=== PATIENT | female | born 1960 | race Caucasian/White ===

== ENCOUNTER 2018-04-22 16:08 | Inpatient (IN) ==
[2018-04-22] MEDS ORDERED: Isovue-370 500 ML INFUS..BTL IV ONE (16:16)
[2018-04-22] MEDS ORDERED: 0.9 % Sodium Chloride 500 ML IVC ONE (16:16)
--- NOTE | 2018-04-22 16:19 | Emergency Department Note ---
Disposition Clinical Impression: Acute kidney injury, Hypokalemia, Hyponatremia Cerebrovascular accident Qualifiers: CVA mechanism: occlusion Precerebral and cerebral artery: unspecified precerebral artery Qualified Code(s): I63.20 - Cerebral infarction due to unspecified occlusion or stenosis of unspecified precerebral arteries Hypotension Qualifiers: Hypotension type: other hypotension type Qualified Code(s): I95.89 - Other hypotension Disposition: Admitted As Inpatient Condition: Fair Referrals: NONE,PCP [Primary Care Provider] - Forms: ED Satisfaction Letter Time of Disposition: 18:08 Neuro HPI - General Chief Complaint: ED Neuro Symptoms/Deficit Stated Complaint: neuro, hypotensive Time Seen by Provider: 04/22/18 16:14 Nursing Notes Reviewed: Yes Vital Signs Reviewed: Yes - History of Present Illness HPI Narrative: 57yo female presents from [facility] where she is undergoing post- stroke physical therapy. Staff noted this afternoon that her left sided facial droop was worse then normal. Last known well per staff report to EMS is 7pm yesterday evening (21hrs prior to arrival). Patient has been increasing Per patient, she awoke this morning at an unknown time with worsening slurring of speech and worsening difficulty chewing. EMS was called and patient was transported to this facility. 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 At baseline, patient has left sided facial droop, left upper and lower extremity weakness (cannot lift from bed at baseline). PMH: Hypertension, 5 of myalgia, thyroid disease, history of migraines, history of prior CVA. ROS: Positive: As above. Patient notes a mild headache on EMS arrival to [facility] which has now resolved. Negative: Falls, trauma, fever, chills, chest pains, palpitations, dyspnea, diaphoresis, fever, chills - Related Data Home Medications: Home Medications Medication Instructions Recorded Confirmed Acetaminophen [Non-Aspirin] 650 mg PO Q4-6H PRN 04/22/18 04/22/18 Albuterol Neb [Proventil Neb] 2.5 mg IH Q4H PRN 04/22/18 04/22/18 Amlodipine Besylate 10 mg PO DAILY 04/22/18 04/22/18 Azelastine 0.1% Nasal [place] 1 spr NS DAILY 04/22/18 04/22/18 [Astelin] Cyclobenzaprine HCl 5 mg PO BID 04/22/18 04/22/18 Dextromethorphan HBr/Quinidine 1 cap PO BID 04/22/18 04/22/18 [Nuedexta 20-10 mg Capsule] FLUoxetine HCl [Fluoxetine HCl] 40 mg PO DAILY 04/22/18 04/22/18 Gabapentin [Neurontin] 800 mg PO TID 04/22/18 04/22/18 Leflunomide [Arava] 20 mg PO DAILY 04/22/18 04/22/18 Levothyroxine [Synthroid] 50 mcg PO QAM 04/22/18 04/22/18 Lisinopril [Zestril] 10 mg PO DAILY 04/22/18 04/22/18 Loratadine [Allergy Relief] 10 mg PO DAILY 04/22/18 04/22/18 Melatonin [Melatin] 6 mg PO HS 04/22/18 04/22/18 Meloxicam [Mobic] 15 mg PO DAILY 04/22/18 04/22/18 Morphine Sulfate [Nadia] 1 cap PO BID 04/22/18 04/22/18 Ondansetron HCl [Zofran] 4 mg PO Q4H PRN 04/22/18 04/22/18 Topiramate [Topamax] 50 mg PO BID 04/22/18 04/22/18 traZODone [TraZODone] 50 mg PO HS 04/22/18 04/22/18 Allergies/Adverse Reactions: Allergies Allergy/AdvReac Type Severity Reaction Status Date / Time Sulfa (Sulfonamide AdvReac See Verified 05/12/17 07:56 Antibiotics) Comments All systems ED: reviewed and negative except as stated. Review of Systems: As Per HPI Past Medical History - Past Medical History Medical history: Reports: CVA, fibromyalgia, hypertension, migraine, RA, thyroid disease, other Surgical history: Reports: hysterectomy (2001) Psychiatric history: Reports: bipolar DOG TRAINER history: Reports: no DOG TRAINER history - Social History Smoking Status: Never smoker Smokeless Tobacco Status: No Alcohol use: Reports: none Drug use: Reports: none Physical Exam Vital Signs Reviewed General: Patient is alert, oriented, and in no acute distress. Head: atraumatic, normocephalic Eye: normal appearance, PERRL, EOMI, no scleral icterus, no conjunctival injec tion ENT: mucous membranes moist, normal external ear exam Neck: normal inspection, trachea midline, full ROM Chest: normal inspection, symmetric chest rise Respiratory: Good respiratory effort. Bilateral breath sounds are clear without wheezing, crackles, or rhonchi. Cardiovascular: Regular rate and rhythm. No clicks, rubs, gallops, or murmors. Normal heart sounds. Abdomen: Bowel sounds present normoactive x-4 quadrants. Abdomen is soft, nondistended, and nontender. No guarding or rebound. No organomegaly noted. Musculoskeletal: Spontaneously moving right upper and lower extremity is. Skin: warm, dry, intact. Neuro: GCS 15. Alert and oriented to person. She states her location is [facility], no [place]. Sensation light touch intact in right UE and LE. Mild decrease in sensation in left UE and LE. Left extremities fall to bed. Negative right finger to nose. Left sided facial droop with mild slurring of speech. Psych: Patient's affect is appropriate for situation. Course Course Narrative: Patient rise with some documentation from [facility]. There is no updated medication list. Documentation provided that appears to be copies from [facility] documentation from May 2017. Discharge outpatient prescriptions show no anticoagulant or antiplatelet medication. Their doctor mentation notes she has no history of aspirin or blood thinners prior to arrival to that facility in May. Their documentation shows suspicion of hypertension contributing to her previous hemorrhagic CVA. On arrival, patient's blood pressure systolic in the 70s. Will provide 500 mL IV fluid bolus. Code stroke called. 16:30 Discussed the patient with [facility] neurologist. Formal CT head review is pending. Discussed with [facility] neurologist the patient's history and presentation as well as timeline of events. They prefer to forego telemetry robot at this time. If there are any positive findings, the request call back to discuss possible transfer. If negative, they recommend admission to this facility for continued evaluation. 16:37 Discussed the patient with [facility]. No acute findings. EKG dated 04/22/2018 at 16:18 interpreted as sinus rhythm with rate of 86. QTC 451. Normal axis. Nonspecific ST-T changes. Compared to previous EKG dated 05/12/2017 showing no acute ischemic changes comparison. 17:40 Discussed the patient with on-call [facility] neurology, Dr. Barksdale. He agrees to see the patient on the inpatient side as consultation with admission to hospitalist. After discussing the patient's history and presentation, strong suspicion for hypoperfusion causing her neurologic symptoms. We will continue to fluid resuscitate and reevaluate. Patient has elevated creatinine substantially higher than baseline. Concern for acute kidney injury. This could be secondary to dehydration which would expl ain her concomitant and hypotension. Patient is hyponatremic; suspect hypovolemic hyponatremia. She also has hypokalemia with potassium 2.9. After discussing with the hospitalist, will provide 20 mEq potassium by mouth with cautious replenishment given her kidney function. Patient is admitted to hospitalist with neurology consult. Pending: Urinalysis, serum magnesium levels. Head CT 04/22/18 16:15 IMPRESSION: No acute intracranial abnormality. Sequela of remote right basal ganglia hemorrhage. Findings were discussed with Jose A Perdue at 4:38 pm on 04/22/2018. D/ / 04/22/2018 16:42:42 Ron Ramirez MD / enma Interpreting Provider: Ron Ramirez MD Head CTA 04/22/18 16:16 IMPRESSION: No acute abnormality or flow-limiting stenosis in the major arteries of the head and neck. Asymmetric small caliber of the left common and internal carotid arteries relative to the right, likely developmental. Status post right frontal craniotomy with subjacent encephalomalacia in the right frontotemporal lobes and the right basal ganglia likely related to old infarctions. D/ / Brian Bailey MD / Brian Bailey MD Interpreting Provider: Brian Bailey MD Neck CTA 04/22/18 16:16 IMPRESSION: No acute abnormality or flow-limiting stenosis in the major arteries of the head and neck. Asymmetric small caliber of the left common and internal carotid arteries relative to the right, likely developmental. Status post right frontal craniotomy with subjacent encephalomalacia in the right frontotemporal lobes and the right basal ganglia likely related to old infarctions. D/ / Brian Bailey MD / Brian Bailey MD Interpreting Provider: Brian Bailey MD Vital Signs Temperature 98.4 F 04/22/18 16:10 Pulse Rate 89 04/22/18 16:10 Respiratory Rate 16 04/22/18 16:10 Blood Pressure 79/29 04/22/18 16:10 O2 Sat by Pulse Oximetry 100 04/22/18 16:10 Temperature 98.4 F 04/22/18 16:10 Pulse Rate 93 04/22/18 17:42 Respiratory Rate 18 04/22/18 17:42 Blood Pressure 84/57 04/22/18 17:42 O2 Sat by Pulse Oximetry 97 04/22/18 17:42 Oxygen Delivery Oxygen Delivery Nasal Cannula Neuro Symptoms/Deficit - Lab Data Result diagrams: 04/22/18 16:15 04/22/18 16:15 Lab Results 04/22/18 04/22/18 04/22/18 Range/Units 16:15 16:15 16:15 WBC 12.3 H (4.3-11.1) K/mcL RBC 5.15 H (3.82-4.97) M/mcL Hgb 13.8 (11.5-15.4) g/dL Hct 43.4 (35.3-44.9) % MCV 84.3 (83.0-100.0) fL MCH 26.8 L (28.0-33.3) pg MCHC 31.8 (31.6-35.5) g/dL RDW 16.1 H (11.5-14.5) % Plt Count 231 (140-400) K/mcL MPV 9.4 (9.4-12.4) fL PT 12.3 H (9.4-12.1) Seconds INR 1.1 APTT 33.3 (26.0-36.0) Seconds Sodium 134 L (136-145) mEq/L Potassium 2.9 L (3.5-5.1) mEq/L Chloride 102 (98-107) mEq/L Carbon Dioxide 20 L (23-29) mEq/L BUN 40 H (6-20) mg/dL Creatinine 4.14 H (0.60-1.20) mg/dL Est GFR ( Amer) 14 L (> 60) Est GFR (Non-Af Amer) 11 L (> 60) BUN/Creatinine Ratio 10 (6-26) Glucose 117 H (70-105) mg/dL Calculated Osmolality 289 (280-300) Calcium 8.2 L (8.6-10.3) mg/dL Troponin I < 0.03 (< 0.04) ng/mL NIH Stroke Scale - Level of Consciousness LOC: Alert - LOC Questions LOC Questions: Answers both correctly - LOC Commands LOC Commands: Performs both correctly - Best Gaze Best Gaze: Normal - Visual Visual: No visual loss - Facial Palsy Facial Palsy: Partial, total, or near-total paralysis of lower face - Motor Arms Motor Arm-Left: No movement (baseline per patient) Motor Arm-Right: No drift for 10 seconds - Motor Legs Motor Leg-Left: No movement (baseline per patient) Motor Leg-Right: No drift for 5 seconds - Limb Ataxia Limb Ataxia: Present in ONE limb (baseline per patient) - Sensory Sensory: Mild to moderate loss, "not as sharp" (baseline per patient) - Best Language Best Language: No aphasia - Dysarthria Dysarthria: Mild, slurs some words (worse than baseline slurring of speech) - Extinction and Inattention Extinction and Inattention: Normal - NIHSS Total Score NIHSS Total Score: 13 TPA Checklist - Eligibilty for IV tPA 1. LKW equal to or less than 4.5 hours be before treatment: No - LKW: 3-4.5 hrs Add. Warnings/Precautions Patient/family understanding: The patient/family members have been counseled and understood the risk, benefit, and alternatives of treatment.
--- NOTE | 2018-04-22 16:20 | Emergency Department Note ---
Disposition Clinical Impression: Cerebrovascular accident Qualifiers: CVA mechanism: occlusion Precerebral and cerebral artery: unspecified precerebral artery Qualified Code(s): I63.20 - Cerebral infarction due to unspecified occlusion or stenosis of unspecified precerebral arteries Disposition: Still a Patient Condition: Fair General Adult HPI - General Chief complaint: ED Neuro Symptoms/Deficit Stated complaint: neuro, hypotensive Time Seen by Provider: 04/22/18 16:14 Nursing Notes Reviewed: Yes Vital Signs Reviewed: Yes - History of Present Illness HPI Narrative: ED attending Attestation note Patient was seen with the emergency medicine resident, Jose A Perdue: I have independently evaluated the patient and have had [id number] contact with the patient. I have reviewed the history and physical, evaluation and management plan in addition to the pertinent laboratory, ancillary and imaging studies along with consultation recommendations if applicable. I agree with their evaluation, management and disposition.. Briefly: 57-year-old female history of at least 2 prior strokes one requiring intubation and transfer to the [facility] earlier this year by EMS from the local custodial facility for worsening of her pre-existing left facial droop and weakness. Last known well per half-way staff is 7 PM yesterday. Patient says she woke up at an unknown time this morning and was feeling the symptoms. Continue protocol changes symptoms up to 24 hours or eligible for stroke alert. A stroke alert has been called. Imaging studies blood work interventions are being made. Patient is hypotensive at a systolic of 75. Patient will get 500 mL normal saline bolus and recheck. Providing one hour critical care service this patient. Disposition pending. - Related Data Home Medications Medication Instructions Recorded Confirmed FLUoxetine HCl [PROzac] 20 mg PO DAILY 05/12/17 05/12/17 Montelukast [Singulair] 10 mg PO DAILY 05/12/17 05/12/17 Naproxen 375 mg PO BID 05/12/17 05/12/17 Topiramate [Topamax] 50 mg PO BID 05/12/17 05/12/17 Allergies Allergy/AdvReac Type Severity Reaction Status Date / Time Sulfa (Sulfonamide AdvReac See Verified 05/12/17 07:56 Antibiotics) Comments Past Medical History - Past Medical History Medical history: Reports: CVA, fibromyalgia, hypertension, migraine, RA, thyroid disease, other Surgical history: Reports: hysterectomy (2001) Psychiatric history: Reports: bipolar CAD DESIGNER history: Reports: no CAD DESIGNER history - Social History Smoking Status: Never smoker Smokeless Tobacco Status: No Alcohol use: Reports: none Drug use: Reports: none
[2018-04-22 16:30] LABS: Hematocrit 43.4 % (35.3-44.9); Hemoglobin 13.8 g/dL (11.5-15.4); Mean Corpuscular HGB Conc 31.8 g/dL (31.6-35.5); Mean Corpuscular Hemoglobin 26.8 pg (28.0-33.3); Mean Corpuscular Volume 84.3 fL (83.0-100.0); Mean Platelet Volume 9.4 fL (9.4-12.4); Platelet Count 231 K/mcL (140-400); Red Blood Count 5.15 M/mcL (3.82-4.97); Red Cell Distribution Width 16.1 % (11.5-14.5)
[2018-04-22 16:39] LABS: INR 1.1; Prothrombin Time 12.3 Seconds (9.4-12.1)
[2018-04-22 16:41] LABS: Activated Partial Thrombo Time 33.3 Seconds (26.0-36.0)
[2018-04-22 16:52] LABS: BUN/Creatinine Ratio 10 (6-26); Blood Urea Nitrogen 40 mg/dL (6-20); Calcium 8.2 mg/dL (8.6-10.3); Carbon Dioxide 20 mEq/L (23-29); Chloride 102 mEq/L (98-107); Glucose 117 mg/dL (70-105); Osmolality,Calculated 289 (280-300); Potassium 2.9 mEq/L (3.5-5.1); Sodium 134 mEq/L (136-145); Troponin I < 0.03 ng/mL (< 0.04); eGFR For Non-African Americans 11 (> 60)
[2018-04-22] MEDS ORDERED: 0.9 % Sodium Chloride 1,000 ML IVC ONE ×2 (17:43→20:27)
[2018-04-22 18:28] LABS: Magnesium 1.2 mg/dL (1.6-2.6)
[2018-04-22 18:46] LABS: Bilirubin,Urine Small (Negative); Blood,Urine Small (Negative); Clarity,Urine Cloudy (Clear); Color,Urine Dark Yellow (Yellow); Glucose,Urine (UA) Normal (Normal); Ketones,Urine Negative (Negative); Leukocyte Esterase,Urine Small (Negative); Nitrite,Urine Negative (Negative); Protein,Urine 30 mg/dL (Neg-Trace); Urobilinogen,Urine Normal (Normal)
[2018-04-22 18:48] LABS: Bacteria,Urine None Seen per hpf (None-Few); Squamous Epithelial Cell,Urine Many per lpf (None-Few); WBC,Urine 15-30 per hpf (0-3)
--- NOTE | 2018-04-22 19:41 | Internal Med History&Physical ---
Date of Encounter: 04/23/18 Time of Encounter: 19:40 Internal Medicine - H&P: HPI Chief complaint: Left Sided Facial Droop History of present illness: Ms. Calderón is a 57 year old female with a past medical history of fibromyalgia, hypertension, migraines and CVA who presents from [facility] where she is undergoing post-stroke physical therapy. Staff noted this afternoon that her left sided facial droop was worse then normal. Last known well per staff r eport to EMS is 7pm yesterday evening (21hrs prior to arrival). Per patient, she awoke this morning at an unknown time with worsening slurring of speech and worsening difficulty chewing. EMS was called and patient was transported to this facility. Patient has a Hx hemorrhagic CVA approximately one year ago in Apr 2017 and CVA in 2014 each with left sided symptoms. At baseline, patient has left sided facial droop, left upper and lower extremity weakness (cannot lift from bed at baseline). Of note, patient has been reporting a two-week history of nausea vomiting and diarrhea with decreased PO intake. I contacted her nursing facility and spoke with her nurse who stated that she has been jiménez ving GI symptoms for the past few days with daily nausea vomiting and diarrhea with decreased by mouth intake. On arrival patient appeared to be dry, was found to be hypotensive with a systolic blood pressure in the 80s. Labs were notable for acute renal failure with a ceatinine of greater than 4. Initial imaging of the head including head and neck CT and CTA were unremarkable. She was evaluated by Dr. Barksdale with neurology in the ED. Past Med Surg Social Fam HX - Past Medical History Medical history: CVA, fibromyalgia, hypertension, migraine, RA, thyroid disease, other Additional medical history: RA / Graves Disease Psychiatric history: bipolar - Past Surgical History Surgical History: hysterectomy (2001) - Social History Smoking Status: Never smoker Smokeless Tobacco Status: No Alcohol use: none Drug use: none Internal Medicine - H&P: Meds Acetaminophen [Non-Aspirin] 650 mg PO Q4-6H PRN 04/22/18 [History] Albuterol Neb [Proventil Neb] 2.5 mg IH Q4H PRN 04/22/18 [History] Amlodipine Besylate 10 mg PO DAILY 04/22/18 [History] Azelastine 0.1% Nasal [place] [Astelin] 1 spr NS DAILY 04/22/18 [History] Cyclobenzaprine HCl 5 mg PO BID 04/22/18 [History] Dextromethorphan HBr/Quinidine [Nuedexta 20-10 mg Capsule] 1 cap PO BID 04/22/18 [History] FLUoxetine HCl [Fluoxetine HCl] 40 mg PO DAILY 04/22/18 [History] Gabapentin [Neurontin] 800 mg PO TID 04/22/18 [History] Leflunomide [Arava] 20 mg PO DAILY 04/22/18 [History] Levothyroxine [Synthroid] 50 mcg PO QAM 04/22/18 [History] Lisinopril [Zestril] 10 mg PO DAILY 04/22/18 [History] Loratadine [Allergy Relief] 10 mg PO DAILY 04/22/18 [History] Melatonin [Melatin] 6 mg PO HS 04/22/18 [History] Meloxicam [Mobic] 15 mg PO DAILY 04/22/18 [History] Morphine Sulfate [Nadia] 1 cap PO BID 04/22/18 [History] Ondansetron HCl [Zofran] 4 mg PO Q4H PRN 04/22/18 [History] Topiramate [Topamax] 50 mg PO BID 04/22/18 [History] traZODone [TraZODone] 50 mg PO HS 04/22/18 [History] Allergy/AdvReac Type Severity Reaction Status Date / Time Sulfa (Sulfonamide AdvReac See Verified 05/12/17 07:56 Antibiotics) Comments All Systems PM: A 10-system review of systems was performed and is negative for pertinent findings except as documented above in the HPI. - Constitutional Constitutional: no chills, no fever(s), no night sweats - EENT Eyes: no change in vision, no discharge, no pain, no photophobia Ears: no ear discharge, no ear pain, no tinnitus Nose, mouth and throat: no dysphagia, no nasal discharge, no neck pain, no sore throat - Cardiovascular Cardiovascular ROS IM: no chest pain, no diaphoresis, no dyspnea, no lightheadedness, no palpitations, no syncope - Respiratory Respiratory: no cough, no dyspnea, no wheezing, no excessive phlegm production - Gastrointestinal Gastrointestinal: no abdominal pain, no diarrhea, no hematemesis, no hematochezia, no melena, no nausea, no vomiting - Genitourinary Genitourinary: no change in urinary stream, no dysuria, no flank pain, no hematuria - Musculoskeletal Musculoskeletal ROS IM: no numbness, no tingling - Integumentary Integumentary IM: no rash, no unusual bruising - Neurological Neurological ROS: no confusion, no convulsions, no focal weakness, no numbness, no tingling, no tremor(s) - Hematologic/Lymphatic Hematologic/Lymphatic: no easy bruising - Constitutional Vitals: Temp Pulse Resp BP Pulse Ox 98.4 F 88 16 96/55 100 04/22/18 16:10 04/22/18 18:23 04/22/18 18:23 04/22/18 18:23 04/22/18 18:23 Exam: General: Alert and oriented Skin:Normal color, no rash, no lesions. HEENT:EOM, pupils equal, round and reactive. Dry mucous membranes Cardiovascular:Normal S1 & S2, no rubs, murmurs or gallops. No JVD. Pulse regular. Lungs:Normal breath sounds, no wheezes or crackles. Abdomen:Soft, non-tender, no rigidity. Extremities:No deformity, no edema or tenderness, no joint swelling or clubbing. Neurological: Significant left-sided upper and lower extremity weakness with in creased spasticity. Mild left-sided facial droop noted. Patient alert oriented 3. Muscle strength 4 out of 5 in the upper and lower extremities. Flaccid in the left upper and lower extremities. Cranial nerves 2 through 12 intact with inability to shrug her left shoulder. Pulses:Carotid and radial pulses normal +2. Rest of the physical exam is non contributory Internal Med - H&P Results - Labs CBC & Chem 7: 04/23/18 03:44 04/23/18 03:44 Labs: Short CBC 04/22/18 Range/Units 16:15 WBC 12.3 H (4.3-11.1) K/mcL Hgb 13.8 (11.5-15.4) g/dL Hct 43.4 (35.3-44.9) % Plt Count 231 (140-400) K/mcL BMP 04/22/18 16:15 Sodium 134 L Potassium 2.9 L Chloride 102 Carbon Dioxide 20 L BUN 40 H Creatinine 4.14 H Glucose 117 H Calcium 8.2 L Cardiac Enzymes 04/22/18 Range/Units 16:15 Troponin I < 0.03 (< 0.04) ng/mL Urine 04/22/18 Range/Units 18:22 Urine Color Dark Yellow (Yellow) Urine Clarity Cloudy A (Clear) Urine pH 5.0 (5.0-8.0) pH Units Ur Specific Sebastian 1.020 (1.010-1.025) Urine Protein 30 H (Neg-Trace) mg/dL Urine Glucose (UA) Normal (Normal) mg/dL - Impressions ITS Impressions Head CT 04/22/18 16:15 IMPRESSION: No acute intracranial abnormality. Sequela of remote right basal ganglia hemorrhage. Findings were discussed with Jose A Perdue at 4:38 pm on 04/22/2018. D/ / 04/22/2018 16:42:42 Ron Ramirez MD / enma Interpreting Provider: Ron Ramirez MD Head CTA 04/22/18 16:16 IMPRESSION: No acute abnormality or flow-limiting stenosis in the major arteries of the head and neck. Asymmetric small caliber of the left common and internal carotid arteries relative to the right, likely developmental. Status post right frontal craniotomy with subjacent encephalomalacia in the right frontotemporal lobes and the right basal ganglia likely related to old infarctions. D/ / Brian Bailey MD / Brian Bailey MD Interpreting Provider: Brian Bailey MD Neck CTA 04/22/18 16:16 IMPRESSION: No acute abnormality or flow-limiting stenosis in the major arteries of the head and neck. Asymmetric small caliber of the left common and internal carotid arteries relative to the right, likely developmental. Status post right frontal craniotomy with subjacent encephalomalacia in the right frontotemporal lobes and the right basal ganglia likely related to old infarctions. D/ / Brian Bailey MD / Brian Bailey MD Interpreting Provider: Brian Bailey MD - Assessment and plan (1) Facial droop Current Visit: Yes Status: Acute Assessment and plan: Patient brought in from rehab center due to concern for worsening left-sided facial droop and slurred speech. Patient has mild left-sided facial droop at baseline. I did not appreciate any slurred speech upon my assessment. CT scan of the head including CTA of the head and neck were performed which did not reveal any acute changes. Patient was evaluated in the ED by Dr. Barksdale with neurology whom I spoke with after his evaluation of the patient and feels her current presentation is unlikely due to to recurrent stroke but likely secondary to her ERNESTINA and medications including gabapentin and narcotics. Patient did not appear to receive a loading dose of aspirin in the ED. He recommends MRI in the morning and further stroke workup. We will give loading dose of Aspirin Continue with neuro checks Echocardiogram and bilateral carotids MRI in the morning Treat underlying hypotension, ERNESTINA and electrolyte derangements (2) Acute kidney injury Current Visit: Yes Status: Acute Assessment and plan: Acute kidney injury with a creatinine of greater than 4. Likely prerenal in the setting of reported several day history of nausea vomiting and diarrhea with decreased by mouth intake. We will continue aggressive fluid rehydration. We will repeat BMP at 10 PM and in the morning. We will hold off nephrology consult for now and see if patient's creatinine improves on its own with hydration. (3) Hypokalemia Current Visit: Yes Status: Acute Assessment and plan: Hypokalemia and a potassium of 2.9 likely secondary to GI losses. No EKG changes noted. Patient passed bedside swallow. We will replete with by mouth potassium and monitor. (4) Hypotension Current Visit: Yes Status: Acute Assessment and plan: Hypotension in the setting of reported history of nausea vomiting and diarrhea for the past 2 days with decreased PO and take. Patient's blood pressure still remains soft with a systolic in the 90s. She is received 1-1/2 L fluid boluses. We will give an additional bolus for now and monitor closely. Qualifiers: Hypotension type: hypotension due to hypovolemia Qualified Code(s): I95.89 - Other hypotension; E86.1 - Hypovolemia (5) Hypomagnesemia Current Visit: Yes Status: Acute Assessment and plan: Hypomagnesemia likely secondary to GI losses. We will replete. (6) DVT prophylaxis Current Visit: Yes Status: Acute Assessment and plan: Subcutaneous heparin - Time Spent With Patient Total time spent is greater than 50% in coordination of care (as documented) at patient's floor/unit and/or counseling patient:
[2018-04-22] MEDS ORDERED: Naloxone 0.4 MG/ML INJ IVP PRN (19:54)
[2018-04-22] MEDS ORDERED: Albuterol 2.5 MG/3 ML NEBULIZER IH PRN (19:57)
[2018-04-22] MEDS ORDERED: Aspirin 325 MG TABLET PO STA (20:59)
[2018-04-22] MEDS: Potassium Citrate 10 MEQ TABLET.ER PO SCH (21:07)
[2018-04-23 00:46] LABS: Calcium 7.2 mg/dL (8.6-10.3); Potassium 3.3 mEq/L (3.5-5.1)
[2018-04-23] MEDS ORDERED: 0.9 % Sodium Chloride 500 ML IVC ONE (00:52)
[2018-04-23] MEDS: *HR* Heparin 5,000 UNIT/ML VIAL SQ SCH ×3 (01:14→22:58)
[2018-04-23] MEDS: 0.9 % Sodium Chloride 1,000 ML IVC SCH ×2 (01:58→12:29)
[2018-04-23 04:11] LABS: Basophils % 0.3 %; Eosinophils # 0.8 K/mcL (0.0-0.6); Eosinophils % 8.6 %; Hematocrit 41.2 % (35.3-44.9); Immature Granulocytes % 0.4 % (0-4); Lymphocytes # 1.4 K/mcL (0.6-4.6); Lymphocytes % 14.8 %; Mean Corpuscular HGB Conc 31.6 g/dL (31.6-35.5); Mean Corpuscular Hemoglobin 26.6 pg (28.0-33.3); Mean Corpuscular Volume 84.4 fL (83.0-100.0); Mean Platelet Volume 9.1 fL (9.4-12.4); Monocytes # 0.7 K/mcL (0.0-1.3); Monocytes % 6.7 %; Neutrophils # 6.8 K/mcL (1.6-8.9); Platelet Count 200 K/mcL (140-400); Red Blood Count 4.88 M/mcL (3.82-4.97); Red Cell Distribution Width 16.2 % (11.5-14.5); Segmented Neutrophils % 69.2 %
[2018-04-23 04:18] LABS: INR 1.1; Prothrombin Time 12.4 Seconds (9.4-12.1)
[2018-04-23 04:21] LABS: Activated Partial Thrombo Time 31.4 Seconds (26.0-36.0)
[2018-04-23 04:33] LABS: Albumin 3.5 g/dL (3.5-5.7); Albumin/Globulin Ratio 1.3 (1.1-2.2); Bilirubin,Total 0.4 mg/dL (0.3-1.0); Calcium 7.4 mg/dL (8.6-10.3); Globulin 2.8 g/dL (2.4-3.5); Magnesium 1.4 mg/dL (1.6-2.6); Phosphorous 4.7 mg/dL (2.7-4.5); Total Protein 6.3 g/dL (6.4-8.9)
--- NOTE | 2018-04-23 07:40 | Internal Med Progress Note ---
Hospitalist Progress Note - Encounter Date of Encounter: 04/23/18 Time of Encounter: 11:00 - Subjective Interval History: Patient is a 57-year-old female with past medical history significant for prior CVAs in 2015 in 2017 who presented with left-sided facial weakness and dysarthria. Workup in progress; MRI, carotids and echocardiogram pending In addition patient also with acute renal failure - Exam Vitals: Temp Pulse Resp BP Pulse Ox 98.1 F 89 17 83/47 72 04/23/18 06:54 04/23/18 06:54 04/23/18 03:44 04/23/18 06:54 04/23/18 06:54 Exam: Gen.: Nonacute distress, alert and oriented 3 ENT: Mucosal membranes moist Respiratory: Lungs are clear to auscultation bilaterally without any wheezing rhonchi or rales Cardiovascular: Normal S1 and S2 regular rate rhythm no murmurs rubs or gallops Abdomen: Soft, nontender and nondistended with positive bowel sounds Extremities: No lower extremity edema Skin: Normal color - Assessment and Plan (1) Facial droop Current Visit: Yes Status: Acute Assessment and Plan: Patient brought in from rehab center due to concern for worsening left-sided facial droop and slurred speech. Patient has mild left-sided facial droop at baseline. CT scan of the head including CTA of the head and neck were performed which did not reveal any acute changes. Patient was evaluated in the ER by Dr. Barksdale with neurology and does not suspect recurrent cva but likely secondary to her acute renal failure and medications including gabapentin and narcotics. Continue with neuro checks Echocardiogram, bilateral carotids and MRI pending Neurology following and appreciate any additional recommendations (2) Hypotension Current Visit: Yes Status: Acute Assessment and Plan: Hypotension in the setting of reported history of nausea vomiting and diarrhea for the past 2 days with decreased PO and take. Patient has received a total of 3 L of IV fluids and is currently on maintenance other 125 mL/hr Will continue to monitor (3) Hypokalemia Current Visit: Yes Status: Acute Assessment and Plan: Potassium of 2.9 on admission; suspect secondary to GI loss due to two-week history of diarrhea. Potassium this morning 3.3 status post a total of 100 mEq of KCl Will continue replacements and monitoring (4) Hypomagnesemia Current Visit: Yes Status: Acute Assessment and Plan: Magnesium 1.2 on admission and is 1.4 this morning status post 1 g of magnesium sulfate Hypomagnesemia likely secondary to GI losses. Will continue replacements and monitoring (5) Acute renal failure (ARF) Current Visit: Yes Status: Acute Assessment and Plan: Creatinine 4.14 on admission with no prior history of kidney disease Suspect secondary to dehydration above Creatinine this morning 3.04 Continue IV fluids Will obtain complete retroperitoneal ultrasound Will consult nephrology and appreciate recommendations (6) HTN (hypertension), benign Current Visit: Yes Status: Acute Assessment and Plan: Patient with hypotension therefore will hold home dose of lisinopril and amlodipine (7) Hypothyroid Current Visit: Yes Status: Acute Assessment and Plan: Continue home dose of levothyroxine (8) Mood disorder Current Visit: Yes Status: Acute Assessment and Plan: Continue home medications (9) DVT prophylaxis Current Visit: Yes Status: Acute Assessment and Plan: Subcutaneous heparin - Time Spent with Patient Total time spent is greater than 50% in coordination of care (as documented) at patient's floor/unit and/or counseling patient: Internal Medicine: Result - Labs CBC & Chem 7: 04/23/18 03:44 04/23/18 03:44 Labs: Short CBC 04/22/18 04/23/18 Range/Units 16:15 03:44 WBC 12.3 H 9.8 (4.3-11.1) K/mcL Hgb 13.8 13.0 (11.5-15.4) g/dL Hct 43.4 41.2 (35.3-44.9) % Plt Count 231 200 (140-400) K/mcL Neutrophils # 6.8 (1.6-8.9) K/mcL BMP 04/22/18 04/23/18 04/23/18 16:15 00:16 03:44 Sodium 134 L 133 L 137 Potassium 2.9 L 3.3 L 3.0 L Chloride 102 108 H 109 H Carbon Dioxide 20 L 13 L 17 L BUN 40 H 37 H 37 H Creatinine 4.14 H 3.36 H 3.04 H Glucose 117 H 114 H 107 H Calcium 8.2 L 7.2 L 7.4 L Cardiac Enzymes 04/22/18 Range/Units 16:15 Troponin I < 0.03 (< 0.04) ng/mL Liver Function 04/23/18 Range/Units 03:44 Total Bilirubin 0.4 (0.3-1.0) mg/dL AST 11 L (13-39) Units/L ALT 21 (7-52) Units/L Alkaline Phosphatase 85 (34-104) Units/L Albumin 3.5 (3.5-5.7) g/dL Urine 04/22/18 Range/Units 18:22 Urine Color Dark Yellow (Yellow) Urine Clarity Cloudy A (Clear) Urine pH 5.0 (5.0-8.0) pH Units Ur Specific [place] 1.020 (1.010-1.025) Urine Protein 30 H (Neg-Trace) mg/dL Urine Glucose (UA) Normal (Normal) mg/dL - ABG Interpretation ABG results: PT/INR, D-dimer PT 12.4 Seconds (9.4-12.1) H 04/23/18 03:44 - Impressions Impressions Head CT 04/22/18 16:15 IMPRESSION: No acute intracranial abnormality. Sequela of remote right basal ganglia hemorrhage. Findings were discussed with Jose A Perdue at 4:38 pm on 04/22/2018. D/ / 04/22/2018 16:42:42 Ron Ramirez MD / enma Interpreting Provider: Ron Ramirez MD Head CTA 04/22/18 16:16 IMPRESSION: No acute abnormality or flow-limiting stenosis in the major arteries of the head and neck. Asymmetric small caliber of the left common and internal carotid arteries relative to the right, likely developmental. Status post right frontal craniotomy with subjacent encephalomalacia in the right frontotemporal lobes and the right basal ganglia likely related to old infarctions. D/ / Brian Bailey MD / Brian Bailey MD Interpreting Provider: Brian Bailey MD Neck CTA 04/22/18 16:16 IMPRESSION: No acute abnormality or flow-limiting stenosis in the major arteries of the head and neck. Asymmetric small caliber of the left common and internal carotid arteries relative to the right, likely developmental. Status post right frontal craniotomy with subjacent encephalomalacia in the right frontotemporal lobes and the right basal ganglia likely related to old infarctions. D/ / Brian Bailey MD / Brian Bailey MD Interpreting Provider: Brian Bailey MD Consult Discharge Plan - Plan Referrals: NONE,PCP [Primary Care Provider] - (2) Hypotension Qualifiers: Hypotension type: hypotension due to hypovolemia Qualified Code(s): I95.89 - Other hypotension; E86.1 - Hypovolemia
[2018-04-23] MEDS ORDERED: Perflutren Lipid Microsphere 1.3 ML in 0.9 % Sodium Chloride 8.7 ML IVP ONE (10:18)
[2018-04-23] MEDS ORDERED: Perflutren Lipid Microsphere 2 ML VIAL ONE (10:27)
--- NOTE | 2018-04-23 11:18 | Neurology - Consult Note ---
Date of Encounter: 04/22/18 Time of Encounter: 06:15 Assessment and Plan (1) Cerebral hypoperfusion Current Visit: Yes Status: Acute This patient who has an history of bleed in head status post any on tummy and hemorrhagic infarct with residual left hemiparesis admitted with these multiple symptoms including worsening of the weakness of the left side. CT scan did not lift but certainly in a patient like this to be difficult to confirm that she did not have a new stroke without MRI. Certainly clinical symptoms are in the same distribution and seems to be worse considering her overall symptoms with decreased fluid intake and being having nausea vomiting it could be related to the hypoperfusion of the brain making the old symptoms worse on the damage brain with significant encephalomalacia noted. With her atrial fibrillation and multiple other medical condition certainly she is risk for the stroke at the moment I suggest that we should continue on the current medication continue to monitor her blood pressure keep it in stable range with IV fluids . Continue her on antiplatelet therapy with aspirin only as there is no evidence of any bleeding on a CT scan. If MRI of the brain shows any evidence of ischemia 3 may consider looking into other treatment options. She would be getting a stroke workup as well but at the same time I would stro ngly recommend to check for any underlying metabolic and infectious etiologies that may be causing her symptoms to be worse. Other treatment is as per primary team case discussed with the admitting ph ysician (2) Hemiparesis affecting left side as late effect of stroke Current Visit: Yes Status: Acute (3) Facial droop Current Visit: Yes Status: Acute (4) Status post craniotomy Current Visit: Yes Status: Acute History of Present Illness HPI: Ms. Calderón is a 57 year old female with past medical history of fibromyalgia, hypertension, migraines and Hemmorhagic CVA , with residual left face droop and hemiparesis, resides in [facility], noted this afternoon that her left sided facial droop was worse then normal. Last known well per staff report to EMS is 7pm yesterday evening (21hrs prior to arrival). Per patient, she has noticed slurring of speech and worsening difficulty chewing when she woke up. EMS was called and patient was transported to ER, she had hemorrhagic CVA approximately one year ago in Apr 2017 and CVA in 2014 each with left sided symptoms. patient also complaining of two-week history of nausea vomiting and diarrhea with decreased PO intake. she has been having GI symptoms for the past few days with daily nausea vomiting and diarrhea with decreased by mouth intake. in ED patient was found to be hypotensive with a systolic blood pressure in the 80s. Labs were notable for acute renal failure with a ceatinine of greater than 4. Initial imaging of the head including head and neck CT and CTA were unremarkable fr any acute findings, She is admitted with the further workup for the stroke and for her GI symptoms Past Med Surg Social Fam HX - Past Medical History Medical history: CVA, fibromyalgia, hypertension, migraine, RA, thyroid disease, other Additional medical history: RA / Graves Disease Psychiatric history: bipolar - Past Surgical History Surgical History: hysterectomy (2001) Additional surgical history: "bladder surgery" and "bowel surgery" - Social History Smoking Status: Never smoker Smokeless Tobacco Status: No Alcohol use: none Drug use: none Medications and Allergies Acetaminophen [Non-Aspirin] 650 mg PO Q4-6H PRN 04/22/18 [History] Albuterol Neb [Proventil Neb] 2.5 mg IH Q4H PRN 04/22/18 [History] Amlodipine Besylate 10 mg PO DAILY 04/22/18 [History] Azelastine 0.1% Nasal [place] [Astelin] 1 spr NS DAILY 04/22/18 [History] Cyclobenzaprine HCl 5 mg PO BID 04/22/18 [History] Dextromethorphan HBr/Quinidine [Nuedexta 20-10 mg Capsule] 1 cap PO BID 04/22/18 [History] FLUoxetine HCl [Fluoxetine HCl] 40 mg PO DAILY 04/22/18 [History] Gabapentin [Neurontin] 800 mg PO TID 04/22/18 [History] Leflunomide [Arava] 20 mg PO DAILY 04/22/18 [History] Levothyroxine [Synthroid] 50 mcg PO QAM 04/22/18 [History] Lisinopril [Zestril] 10 mg PO DAILY 04/22/18 [History] Loratadine [Allergy Relief] 10 mg PO DAILY 04/22/18 [History] Melatonin [Melatin] 6 mg PO HS 04/22/18 [History] Meloxicam [Mobic] 15 mg PO DAILY 04/22/18 [History] Morphine Sulfate [Nadia] 1 cap PO BID 04/22/18 [History] Ondansetron HCl [Zofran] 4 mg PO Q4H PRN 04/22/18 [History] Topiramate [Topamax] 50 mg PO BID 04/22/18 [History] traZODone [TraZODone] 50 mg PO HS 04/22/18 [History] Allergy/AdvReac Type Severity Reaction Status Date / Time Sulfa (Sulfonamide AdvReac See Verified 05/12/17 07:56 Antibiotics) Comments All Systems: The remainder of the systems were reviewed and are negative Physical Examination - Vital Signs Vital Signs: Initial Vital Signs Temp Pulse Resp BP Pulse Ox 98.4 F 89 16 79/29 100 04/22/18 16:10 04/22/18 16:10 04/22/18 16:10 04/22/18 16:10 04/22/18 16:10 - Exam Exam: GENERAL: Comfortable in no acute distress HEENT: Normal LUNGS: CTA HEART: RRR, S1 S2 Audible, no murmur EXTREMITIES: 1 +Pedal edema. DETAILED NEUROLOGICAL EXAMINATION: MENTAL STATUS: Oriented to person, place, date and situation. Memory: knows the President, Aware of recent events Recent Memory Intact, Attention span is normal Cranial Nerve Examination: CN - II: Visual Acuity, Field of Vision Normal, Fundus examination: No disk edema, Pupils- size shape reaction to light and accommodation: All normal. CN III, IV, : External ocular movements were intact, Pupils were reactive, Nodrooping of the eyelids CN V: Sensation over the face to light touch and pinprick all normal. Corneal reflexes not tested, jaw jerk normal. CN VII: LEFT Facial asymmetry, flattening of LEFT nasolabial folds, no difficulty in closing the eyes, no loss of forehead wrinkles, no difficulty in eye-closure, frowning raising eyebrows. CNVIII: No significant hearing loss CN IX, X: Uvula centralized not deviated, Gag reflex: Not tested CN X1: Sternocleidomastoid, trapezius, normal or evidence of any weakness. CN X11: No Dysarthria, no wasting or fibrilation f tongue muscles, no deviation, tongue muscle strength normal. Motor examination: No hypertrophy, tone was normal, power grade 0-5 Upper limbs Proximal- LEFT UPPER EXT PARESIS, NO MOVEMENT, . Distal- weakness in distal muscles On formal testing LEFT IS 0/0, RIGHT IS 4/4 all over Lower limbs On formal testing LEFT IS SPASTIC PARESIS, RIGHT IS 4/4r Coordination: [id number] slow in rihgt , not able to do on left, Sensory system: Superficial sensations- Touch decrease on eft Pain- Pinprick, Temperature all decrease Deep sensation normal, Joint position sense normal. Cortical sensation, Tactile discrimination, localization and extinction derease on left Deep tendon reflexes. hyper acive on right with evidence of Babinski on right No sign of meningeal irritation Gait Examination: Deferred - Constitutional General appearance: comfortable Results - Laboratory Findings CBC and BMP: 04/23/18 03:44 04/23/18 03:44 Abnormal lab findings: Abnormal lab results MCH 26.6 pg (28.0-33.3) L 04/23/18 03:44 RDW 16.2 % (11.5-14.5) H 04/23/18 03:44 MPV 9.1 fL (9.4-12.4) L 04/23/18 03:44 Eosinophils # 0.8 K/mcL (0.0-0.6) H 04/23/18 03:44 PT 12.4 Seconds (9.4-12.1) H 04/23/18 03:44 Potassium 3.0 mEq/L (3.5-5.1) L 04/23/18 03:44 Chloride 109 mEq/L (98-107) H 04/23/18 03:44 Carbon Dioxide 17 mEq/L (23-29) L 04/23/18 03:44 BUN 37 mg/dL (6-20) H 04/23/18 03:44 Creatinine 3.04 mg/dL (0.60-1.20) H 04/23/18 03:44 Est GFR ( Amer) 19 (> 60) L 04/23/18 03:44 Est GFR (Non-Af Amer) 16 (> 60) L 04/23/18 03:44 Glucose 107 mg/dL (70-105) H 04/23/18 03:44 Calcium 7.4 mg/dL (8.6-10.3) L 04/23/18 03:44 Phosphorus 4.7 mg/dL (2.7-4.5) H 04/23/18 03:44 Magnesium 1.4 mg/dL (1.6-2.6) L 04/23/18 03:44 AST 11 Units/L (13-39) L 04/23/18 03:44 Serum Total Protein 6.3 g/dL (6.4-8.9) L 04/23/18 03:44 Urine Clarity Cloudy (Clear) A 04/22/18 18:22 Urine Protein 30 mg/dL (Neg-Trace) H 04/22/18 18:22 Urine Blood Small (Negative) H 04/22/18 18:22 Urine Bilirubin Small (Negative) H 04/22/18 18:22 Ur Leukocyte Esterase Small (Negative) H 04/22/18 18:22 Urine Microscopic RBC 5-15 per hpf (0-3) H 04/22/18 18:22 Urine Microscopic WBC 15-30 per hpf (0-3) H 04/22/18 18:22 Ur Squamous Epith Cells Many per lpf (None-Few) H 04/22/18 18:22 Ur Culture Indicated? NO. (NO) A 04/22/18 18:22 - Diagnostic Findings Additional findings: CT scan of the head shows Encephalomalacia is present in the right frontal lobe and right temporal lobe at the site of the previous intraparenchymal hemorrhage. Postoperative changes are present in the right frontal lobe likely from evacuation of the hematoma. CT angiopathy the neck did not show any carotid or vertebral stenosis Consult Discharge Plan - Plan Referrals: NONE,PCP [Primary Care Provider] -
[2018-04-23] MEDS: Aspirin 81 MG TAB.CHEW PO SCH (12:32)
--- NOTE | 2018-04-23 13:31 | Nephrology Consult Note ---
Date of Encounter: 04/23/18 Time of Encounter: 12:00 Assessment and Plan (1) Acute kidney injury Current Visit: Yes Status: Acute Elevated SCr in the setting of N/V/D and decerased po intake whie on NSAIDs and ACEi Agree with holding all nephrotoxins agent and avoiding any more Agree with aggresive fluid repletion, appears to be effective as SCr already trending down No acute indication for [employer] at this time Will check some urine studies Will check CPK and uric acid levels (2) Hypokalemia Current Visit: Yes Status: Acute Replete magnesium first and then potassium. appears to have received already a total of 140MeQ? Per medication orders (3) Hypomagnesemia Current Visit: Yes Status: Acute Magnesium replaced with 1grams over an hour twice, with resultant increase up to 11.4, might be too fast Will replete again but this time 2grams over 4 hrs History of Present Illness - Reason for Consult Consult date: 04/23/18 Acute Kidney Injury, hypokalemia Requesting physician: Calderon Rice - History of Present Illness 57 y o female with PMH of CVA last a year ago in rehab, fibromyalgia, bipolar d/o and HTN admitted after being sent in from [facility] with facial droop. Pt was noted with elevated Scr at 4.14, GFR 11 with known baseline at 1.14 as of 04/2017. Also part of the history of 2 weeks of N/V/D along with decreased po intake. Noted on medication list are meloxicam and lisinopril. Pt seen and examined still with diarrhea but was able to tolerate po intake today so far. Past Med Surg Social Fam HX - Past Medical History Medical history: CVA, fibromyalgia, hypertension, migraine, RA, thyroid disease, other Additional medical history: RA / Graves Disease Psychiatric history: bipolar - Past Surgical History Surgical History: hysterectomy (2001) Additional surgical history: "bladder surgery" and "bowel surgery" - Social History Smoking Status: Never smoker Smokeless Tobacco Status: No Alcohol use: none Drug use: none Medications and Allergies Acetaminophen [Non-Aspirin] 650 mg PO Q4-6H PRN 04/22/18 [History] Albuterol Neb [Proventil Neb] 2.5 mg IH Q4H PRN 04/22/18 [History] Amlodipine Besylate 10 mg PO DAILY 04/22/18 [History] Azelastine 0.1% Nasal [place] [Astelin] 1 spr NS DAILY 04/22/18 [History] Cyclobenzaprine HCl 5 mg PO BID 04/22/18 [History] Dextromethorphan HBr/Quinidine [Nuedexta 20-10 mg Capsule] 1 cap PO BID 04/22/18 [History] FLUoxetine HCl [Fluoxetine HCl] 40 mg PO DAILY 04/22/18 [History] Gabapentin [Neurontin] 800 mg PO TID 04/22/18 [History] Leflunomide [Arava] 20 mg PO DAILY 04/22/18 [History] Levothyroxine [Synthroid] 50 mcg PO QAM 04/22/18 [History] Lisinopril [Zestril] 10 mg PO DAILY 04/22/18 [History] Loratadine [Allergy Relief] 10 mg PO DAILY 04/22/18 [History] Melatonin [Melatin] 6 mg PO HS 04/22/18 [History] Meloxicam [Mobic] 15 mg PO DAILY 04/22/18 [History] Morphine Sulfate [Nadia] 1 cap PO BID 04/22/18 [History] Ondansetron HCl [Zofran] 4 mg PO Q4H PRN 04/22/18 [History] Topiramate [Topamax] 50 mg PO BID 04/22/18 [History] traZODone [TraZODone] 50 mg PO HS 04/22/18 [History] Allergy/AdvReac Type Severity Reaction Status Date / Time Sulfa (Sulfonamide AdvReac See Verified 05/12/17 07:56 Antibiotics) Comments Review of Systems All Systems review (narrative): The rest of the systems are negative Constitutional: fatigue (admits) Gastrointestinal: diarrhea (admits), vomiting (admits) Exam - Vital Signs Vital signs: Initial Vital Signs Temp Pulse Resp BP Pulse Ox 98.4 F 89 16 79/29 100 04/22/18 16:10 04/22/18 16:10 04/22/18 16:10 04/22/18 16:10 04/22/18 16:10 Vital Signs - Last 8 Hours Temp Pulse BP Pulse Ox 04/23/18 13:16 97.5 F L 96 115/72 04/23/18 06:54 98.1 F 89 83/47 72 Intake and Output 04/22/18 04/23/18 04/23/18 23:59 07:59 15:59 Intake Total 2602 / 2602 500 / 500 1120 / 1120 Output Total 0 / 0 Balance 2602 / 2602 500 / 500 1120 / 1120 Intake: IV Fluids 2602 / 2602 500 / 500 1000 / 1000 0.9 % Sodium Chloride 1,000 ML 1000 / 1000 1000 / 1000 @ 125 mls/hr IVC .Q8H MALIK Rx#: [id number] 0.9 % Sodium Chloride 500 ML @ 500 / 500 500 / 500 999 mls/hr IVC .Q31M ONE Rx#: [id number] Magnesium Sulfate 1 GM In 0.9 % 102 / 102 Sodium Chloride 100 ML @ 100 mls/hr IVPB ONCE ONE Rx#: [id number] Oral 120 / 120 Output: Urine 0 / 0 Other: Meal Breakfast Percent of Meal Consumed 25% Weight 91.671 kg 91.5 kg Blood Glucose* 77 Patient Weight 04/23/18 23:59 Weight 91.5 kg - General Appearance General appearance: chronically ill, fatigue EENT: ATNC, mucous membranes dry Neck: no JVD, supple Respiratory: clear Cardiology: no edema, normal S1, normal S2 Gastrointestinal: no tenderness, no guarding, distended Integumentary: warm and dry Neurologic: no focal deficit Musculoskeletal: no deformities Psychiatric: mood/affect appropriate Results - Lab Results 04/23/18 03:44 04/23/18 03:44 Most recent lab results Calcium 7.4 mg/dL (8.6-10.3) L 04/23/18 03:44 Phosphorus 4.7 mg/dL (2.7-4.5) H 04/23/18 03:44 Magnesium 1.4 mg/dL (1.6-2.6) L 04/23/18 03:44 Consult Discharge Plan - Plan Referrals: NONE,PCP [Primary Care Provider] -
[2018-04-23 15:04] LABS: Uric Acid 10.3 mg/dL (2.3-7.6)
--- NOTE | 2018-04-23 15:45 | Neurology Progress Note ---
Date of Encounter: 04/23/18 Time of Encounter: 15:43 Assessment and Plan (1) Cerebral hypoperfusion Current Visit: Yes Status: Acute (2) Hemiparesis affecting left side as late effect of stroke Current Visit: Yes Status: Acute Continued to have the symptoms on the left side we will get an MRI to confirm that indeed is a new infarct or not in the meantime continue on an aspirin floyd nue to treat underlying other metabolic and infectious etiologies will follow the patient with you (3) Facial droop Current Visit: Yes Status: Acute (4) Status post craniotomy Current Visit: Yes Status: Acute Subjective Interval history: Overall patient is a stable no new or symptoms awaiting MRI of the brain still having nausea vomiting and decreased fluid intake getting IV fluids following up with nephrology she was found to be on lot of medication that perhaps contributing to her renal dysfunction like high doses of gabapentin and methadone for pain Objective - Constitutional Vitals: Temp Pulse Resp BP Pulse Ox 97.5 F L 101 17 118/71 72 04/23/18 13:16 04/23/18 15:13 04/23/18 03:44 04/23/18 15:13 04/23/18 06:54 - Neurological Exam Sensorimotor examination: Present: intact (No significant change in the neurological status continued to have this left hemiparesis) Results - Laboratory Findings CBC and BMP: 04/23/18 03:44 04/23/18 03:44 Abnormal lab findings: Abnormal lab results MCH 26.6 pg (28.0-33.3) L 04/23/18 03:44 RDW 16.2 % (11.5-14.5) H 04/23/18 03:44 MPV 9.1 fL (9.4-12.4) L 04/23/18 03:44 Eosinophils # 0.8 K/mcL (0.0-0.6) H 04/23/18 03:44 PT 12.4 Seconds (9.4-12.1) H 04/23/18 03:44 Potassium 3.0 mEq/L (3.5-5.1) L 04/23/18 03:44 Chloride 109 mEq/L (98-107) H 04/23/18 03:44 Carbon Dioxide 17 mEq/L (23-29) L 04/23/18 03:44 BUN 37 mg/dL (6-20) H 04/23/18 03:44 Creatinine 3.04 mg/dL (0.60-1.20) H 04/23/18 03:44 Est GFR ( Amer) 19 (> 60) L 04/23/18 03:44 Est GFR (Non-Af Amer) 16 (> 60) L 04/23/18 03:44 Glucose 107 mg/dL (70-105) H 04/23/18 03:44 Uric Acid 10.3 mg/dL (2.3-7.6) H 04/23/18 14:13 Calcium 7.4 mg/dL (8.6-10.3) L 04/23/18 03:44 Phosphorus 4.7 mg/dL (2.7-4.5) H 04/23/18 03:44 Magnesium 1.4 mg/dL (1.6-2.6) L 04/23/18 03:44 AST 11 Units/L (13-39) L 04/23/18 03:44 Serum Total Protein 6.3 g/dL (6.4-8.9) L 04/23/18 03:44 Urine Clarity Cloudy (Clear) A 04/22/18 18:22 Urine Protein 30 mg/dL (Neg-Trace) H 04/22/18 18:22 Urine Blood Small (Negative) H 04/22/18 18:22 Urine Bilirubin Small (Negative) H 04/22/18 18:22 Ur Leukocyte Esterase Small (Negative) H 04/22/18 18:22 Urine Microscopic RBC 5-15 per hpf (0-3) H 04/22/18 18:22 Urine Microscopic WBC 15-30 per hpf (0-3) H 04/22/18 18:22 Ur Squamous Epith Cells Many per lpf (None-Few) H 04/22/18 18:22 Ur Culture Indicated? NO. (NO) A 04/22/18 18:22 Consult Discharge Plan - Plan Referrals: NONE,PCP [Primary Care Provider] -
[2018-04-23] MEDS: Potassium Citrate 10 MEQ TABLET.ER PO SCH (23:01)
[2018-04-23] MEDS: Azelastine 0.1% Nasal Spray 30 ML BOTTLE NS SCH (23:01)
[2018-04-23 23:29] LABS: Albumin 3.7 g/dL (3.5-5.7); Albumin/Globulin Ratio 1.3 (1.1-2.2); Calcium 8.5 mg/dL (8.6-10.3); Globulin 2.8 g/dL (2.4-3.5); Magnesium 1.7 mg/dL (1.6-2.6); Potassium 3.7 mEq/L (3.5-5.1); Total Protein 6.5 g/dL (6.4-8.9)
[2018-04-23 23:30] LABS: Bilirubin,Total 0.4 mg/dL (0.3-1.0); Phosphorous 2.1 mg/dL (2.7-4.5)
[2018-04-24] MEDS: Potassium Citrate 10 MEQ TABLET.ER PO SCH ×5 (00:44→20:01)
[2018-04-24] MEDS: *HR* Heparin 5,000 UNIT/ML VIAL SQ SCH ×5 (00:44→23:48)
[2018-04-24] MEDS: 0.9 % Sodium Chloride 1,000 ML IVC SCH ×3 (00:45→19:55)
[2018-04-24 05:00] LABS: Basophils % 0.3 %; Eosinophils # 0.6 K/mcL (0.0-0.6); Eosinophils % 7.7 %; Hemoglobin 12.9 g/dL (11.5-15.4); Immature Granulocytes % 0.3 % (0-4); Lymphocytes # 0.9 K/mcL (0.6-4.6); Lymphocytes % 11.1 %; Mean Corpuscular HGB Conc 32.3 g/dL (31.6-35.5); Mean Corpuscular Hemoglobin 26.5 pg (28.0-33.3); Mean Corpuscular Volume 82.3 fL (83.0-100.0); Monocytes # 0.5 K/mcL (0.0-1.3); Monocytes % 6.7 %; Neutrophils # 5.6 K/mcL (1.6-8.9); Platelet Count 218 K/mcL (140-400); Red Blood Count 4.86 M/mcL (3.82-4.97); Segmented Neutrophils % 73.9 %
[2018-04-24 05:18] LABS: BUN/Creatinine Ratio 15 (6-26); Blood Urea Nitrogen 16 mg/dL (6-20); Calcium 8.5 mg/dL (8.6-10.3); Carbon Dioxide 19 mEq/L (23-29); Chloride 112 mEq/L (98-107); Glucose 135 mg/dL (70-105); Osmolality,Calculated 291 (280-300); Potassium 3.5 mEq/L (3.5-5.1); Sodium 139 mEq/L (136-145); eGFR For Non-African Americans 53 (> 60)
[2018-04-24 07:12] LABS: Adenovirus F 40/41 PCR Not detected (Not detect); Astrovirus PCR Not detected (Not detect); C.difficile Toxin A/B by PCR Not detected (Not detect); Campylobacter by PCR Not detected (Not detect); Cryptosporidium by PCR Not detected (Not detect); Cyclospora cayetanensis PCR Not detected (Not detect); E. coli O157 by PCR Not detected (Not detect); Entamoeba histolytica PCR Not detected (Not detect); Enteroaggregative E.coli(EAEC) Not detected (Not detect); Enteropathogenic E.coli(EPEC) Not detected (Not detect); Enterotoxigenic E.coli (ETEC) Not detected (Not detect); Giardia lamblia PCR Not detected (Not detect); Norovirus GI/GII PCR Not detected (Not detect); Plesiomonas shigelloides PCR Not detected (Not detect); Rotavirus A PCR Not detected (Not detect); Salmonella PCR Not detected (Not detect); Sapovirus PCR Not detected (Not detect); Shig/EnteroinvasiveE coli EIEC Not detected (Not detect); Shigalike tox-prod E coli STEC Not detected (Not detect); Vibrio PCR Not detected (Not detect); Vibrio cholerae PCR Not detected (Not detect); Yersinia enterocolitica PCR Not detected (Not detect)
--- NOTE | 2018-04-24 07:42 | Event Note ---
Date of Encounter: 04/24/18 Time of Encounter: 07:40 Nephrology Chart Review I received a hand-off communication from my colleague Dr. Jorgensen: 57 y/o F with ERNESTINA. The ERNESTINA and electrolyte abnormalities have nearly completely resolved. Will sign-off at this time. Thank you for having consulted the [facility] group. Please feel free to call and / or page me with any questions. Thank you
[2018-04-24] MEDS: Aspirin 81 MG TAB.CHEW PO SCH (12:23)
--- NOTE | 2018-04-24 12:53 | Gastroenterology Consult Note ---
<Piedad Hooks - Last Filed: 04/24/18 12:49> Date of Encounter: 04/24/18 Time of Encounter: 12:15 - Assessment and plan (1) Diarrhea Current Visit: Yes Status: Acute Assessment and plan: Pt reports a month long history of diarrhea. GI panel was negative, will check fecal calpro, pancreatic elastase, and TSH. She needs colonoscopy to rule out microscopic colitis after workup for acute CVA is complete. She is being followed by neurology and MRI is scheduled for today. Qualifiers: Diarrhea type: unspecified type Qualified Code(s): R19.7 - Diarrhea, unsp ecified (2) Nausea & vomiting Current Visit: Yes Status: Acute Assessment and plan: Better at this time. Will likely need EGD if unresolved. Qualifiers: Vomiting type: unspecified Vomiting Intractability: unspecified Qualified Code(s): R11.2 - Nausea with vomiting, unspecified (3) Cerebrovascular accident Current Visit: Yes Status: Acute Assessment and plan: Pt had hemorrhagic stroke last year, presented with worsening symptoms. She is being seen by neurology and MRI is scheduled. Qualifiers: CVA mechanism: occlusion Precerebral and cerebral artery: unspecified precerebral artery Qualified Code(s): I63.20 - Cerebral infarction due to unspecified occlusion or stenosis of unspecified precerebral arteries (4) Acute renal failure (ARF) Current Visit: Yes Status: Acute Assessment and plan: Improved following hydration. - Time Spent With Patient Total time spent is greater than 50% in coordination of care (as documented) at patient's floor/unit and/or counseling patient: GI History of Present Illness - Data of Consult Patient: new to practice Consult date: 04/24/18 Requesting Physician: Calderon Rice - Consult Narrative Reason for consult: nausea/vomiting/diarrhea History of present illness: Ms. Calderón is a 57 year old female with a past medical history of fibromyalgia, hypertension, migraines and CVA who presents from [facility] where she is undergoing post-stroke physical therapy. Staff noted this afternoon that her left sided facial droop was worse then normal. Patient has a Hx hemorrhagic CVA approximately one year ago in Apr 2017 and CVA in 2014 each with left sided symptoms. At baseline, patient has left sided facial droop, left upper and lower extremity weakness (cannot lift from bed at baseline). Of note, patient has been reporting a two-week history of nausea vomiting and diarrhea with decreased PO intake. Per the nursing facility, she has been having GI symptoms for the past few days with daily nausea vomiting and diarrhea with decreased by mouth intake. On arrival patient appeared to be dehydrated and labs indicated acute renal failure. Initial imaging of the head including head and neck CT and CTA were unremarkable. She was evaluated by Dr. Barksdale with neurology in the ED. The patient has also been more confused and hallucinating, per nurse reports. She denies any nausea at this time, but states that she has nausea and abdominal pain every time she eats. She reports explosive watery diarrhea and currently has a rectal tube. She denies any hematochezia or melena. Colonoscopy/egd: pt is unsure of dates NSAIDS: ASA 81 mg Anticoagulants: sub Q heparin Past Med Surg Social Fam HX - Past Medical History Medical history: CVA, fibromyalgia, hypertension, migraine, RA, thyroid disease, other Additional medical history: RA / Graves Disease Psychiatric history: bipolar - Past Surgical History Surgical History: hysterectomy (2001) Additional surgical history: "bladder surgery" and "bowel surgery" - Social History Smoking Status: Never smoker Smokeless Tobacco Status: No Alcohol use: none Drug use: none Review of Systems: GI: as per [facility] GENERAL: denies fever, has some chills EYES: denies yellow discoloration ENT: denies pain with swallowing or difficulty swallowing CARDIO: denies chest pain, palpitations RESP: No Shortness of breath with exertion : denies change in color of urine NEURO: chronic left sided weakness HEME: Denies any bruising MS: complains of chronic pain. DERM: denies rash or itching PSYCH: history of anxiety and depression - Constitutional Vitals: Temp Pulse Resp BP Pulse Ox 98.0 F 103 15 152/84 94 04/24/18 11:00 04/24/18 11:00 04/24/18 11:00 04/24/18 11:00 04/24/18 11:00 Exam: CONSTITUTIONAL:alert, no acute distress.HEAD:normocephalic.EYES:no jaundice.NECK:no obvious swelling.HEART:regular rate and rhythm, no murmurs.LUNGS:bilateral fair air entry.ABDOMEN:non distended, soft, tender, no masses palpable, no organomegaly.RECTAL EXAM:Deferred.EXTREMITIES:no clubbing, cyanosis or edema, left sided weakness noted.SKIN:no stigmata of chronic liver disease.NEUROLOGIC:no obvious focal defect. Results - Labs CBC & Chem 7: 04/24/18 04:27 04/24/18 04:27 Labs: Last Result Calcium 8.5 mg/dL (8.6-10.3) L 04/24/18 04:27 Troponin I < 0.03 ng/mL (< 0.04) 04/22/18 16:15 Entire Visit Hgb 12.9 g/dL (11.5-15.4) 04/24/18 04:27 Hct 40.0 % (35.3-44.9) 04/24/18 04:27 PT 12.4 Seconds (9.4-12.1) H 04/23/18 03:44 Total Bilirubin 0.4 mg/dL (0.3-1.0) 04/23/18 21:36 AST 15 Units/L (13-39) 04/23/18 21:36 ALT 17 Units/L (7-52) 04/23/18 21:36 - ABG ABG results: PT/INR, D-dimer PT 12.4 Seconds (9.4-12.1) H 04/23/18 03:44 - Impressions Impressions Head CT 04/22/18 16:15 IMPRESSION: No acute intracranial abnormality. Sequela of remote right basal ganglia hemorrhage. Findings were discussed with Jose A Perdue at 4:38 pm on 04/22/2018. D/ / 04/22/2018 16:42:42 Ron Ramirez MD / enma Interpreting Provider: Ron Ramirez MD Echocardiogram 04/23/18 21:00 Impressions: LVEF 65%. Indeterminate diastolic function. Definity echo contrast was used. Normal right ventricular structure and function. Mild tricuspid regurgitation. No pulmonary hypertension. Saline contrast injection negative for presence of inter-atrial shunting. Left Ventricular Wall Motion: Rest Echo Findings All wall segments showed normal motion. Findings: Study Quality * Technically challenging due to body habitus. ECG Findings * Normal sinus rhythm. Left Ventricle * LVEF 65%. * Indeterminate diastolic function. * Definity echo contrast was used. * Normal LV chamber size, wall thickness and function. Right Ventricle * Normal right ventricular structure and function. Left Atrium * Normal left atrial size. Right Atrium * Normal right atrial size. Aortic Valve * No aortic regurgitation. * No aortic stenosis. * Aortic valve not well visualized. Mitral Valve * No mitral regurgitation. * No mitral stenosis. * Normal mitral valve structure. Tricuspid Valve * Tricuspid valve not well visualized. * Mild tricuspid regurgitation. Pulmonic Valve * Pulmonic valve is not well visualized. * No pulmonic stenosis. * No pulmonic regurgitation. Pulmonary Artery * Pulmonary artery not well visualized. Aorta * Normally sized aortic root. * Proximal descending thoracic aorta not well visualized. Pericardium * There is no pericardial effusion present. Interatrial Septum * Saline contrast injection negative for presence of inter-atrial shunting. IVC * The IVC is not well evaluated. Consult Discharge Plan - Plan Referrals: NONE,PCP [Primary Care Provider] - <Isa Sharif - Last Filed: 04/24/18 21:21> Date of Encounter: 04/24/18 Time of Encounter: 17:50 - Time Spent With Patient Total time spent is greater than 50% in coordination of care (as documented) at patient's floor/unit and/or counseling patient: GI History of Present Illness - Data of Consult Requesting Physician: Calderon Rice - Consult Narrative History of present illness: Ms. Calderón is a 57 year old female - Constitutional Vitals: Temp Pulse Resp BP Pulse Ox 97.6 F 102 16 152/96 94 04/24/18 20:06 04/24/18 20:06 04/24/18 20:06 04/24/18 20:06 04/24/18 18:55 Results - Labs CBC & Chem 7: 04/24/18 04:27 04/24/18 04:27 Labs: Last Result Calcium 8.5 mg/dL (8.6-10.3) L 04/24/18 04:27 Troponin I < 0.03 ng/mL (< 0.04) 04/22/18 16:15 Entire Visit Hgb 12.9 g/dL (11.5-15.4) 04/24/18 04:27 Hct 40.0 % (35.3-44.9) 04/24/18 04:27 PT 12.4 Seconds (9.4-12.1) H 04/23/18 03:44 Total Bilirubin 0.4 mg/dL (0.3-1.0) 04/23/18 21:36 AST 15 Units/L (13-39) 04/23/18 21:36 ALT 17 Units/L (7-52) 04/23/18 21:36 - ABG ABG results: PT/INR, D-dimer PT 12.4 Seconds (9.4-12.1) H 04/23/18 03:44 - Impressions Impressions Head CT 04/22/18 16:15 IMPRESSION: No acute intracranial abnormality. Sequela of remote right basal ganglia hemorrhage. Findings were discussed with Jose A Perdue at 4:38 pm on 04/22/2018. D/ / 04/22/2018 16:42:42 Ron Ramirez MD / enma Interpreting Provider: Ron Ramirez MD - Attending Attestation I examined this patient and my medical decision-making was reviewed with the Resident Physician. I agree with the documented findings, disposition and treatment plan as described except to the extent set forth below. Pt seen. No vomitting. O/E: AA has left side weakness. Abd Soft. A: Pt with diarrhea, NV. Rec: will check stool studies, if stool w/u negative then will consider scopes only after w/u for stroke completed
--- NOTE | 2018-04-24 14:36 | Neurology Progress Note ---
Addendum entered and electronically signed by Surjit Barksdale MD 04/27/18 15:28: Pt was seen and examined, my medical decision was reviewed with the Resident Physician, I agree with the documented findings, disposition and treatment plas as described except to the extent set forth below Surjit Barksdale MD Addendum entered and electronically signed by Moris Mackenzie DO 04/26/18 08:13: Original Note: <Moris Mackenzie - Last Filed: 04/24/18 14:48> Date of Encounter: 04/24/18 Time of Encounter: 14:32 Assessment and Plan (1) Hemiparesis affecting left side as late effect of stroke Current Visit: Yes Status: Acute still awaiting MRI. Patient does not have any return of strength in her left side. continue aspirin Subjective Principal diagnosis: CVA Interval history: no acute events overnight. Still awaiting MRI. Patient is confused this morning, saying she needs to get "tests" done and no one wants to get her a neurology appointment. She continues to have left hemiparesis. Objective - Constitutional Vitals: Temp Pulse Resp BP Pulse Ox 98.4 F 105 17 155/82 94 04/24/18 12:27 04/24/18 12:27 04/24/18 12:27 04/24/18 12:27 04/24/18 11:00 - Neurological Exam Sensorimotor examination: Present: intact (No significant change in the neurological status continued to have this left hemiparesis) - Other Additional findings: General: pleasant, without distress Neck: nontender to palpation, absent lymphadenopathy, Cardiovascualr: Regular rate and rhythm with no murmur, absent gallops or rubs, absent pedal edema, radial pulses 2 out of 4 Lungs: Clear to auscultation bilaterally, not in respiratory distress Abdomen: Soft nontender, nondistended positive bowel sounds, absent hepatomegaly Results - Laboratory Findings CBC and BMP: 04/24/18 04:27 04/24/18 04:27 Abnormal lab findings: Abnormal lab results MCV 82.3 fL (83.0-100.0) L 04/24/18 04:27 MCH 26.5 pg (28.0-33.3) L 04/24/18 04:27 RDW 16.0 % (11.5-14.5) H 04/24/18 04:27 MPV 9.0 fL (9.4-12.4) L 04/24/18 04:27 PT 12.4 Seconds (9.4-12.1) H 04/23/18 03:44 Chloride 112 mEq/L (98-107) H 04/24/18 04:27 Carbon Dioxide 19 mEq/L (23-29) L 04/24/18 04:27 Est GFR (Non-Af Amer) 53 (> 60) L 04/24/18 04:27 Glucose 135 mg/dL (70-105) H 04/24/18 04:27 POC Glucose 108 mg/dL (70-99) H 04/24/18 07:26 Uric Acid 10.3 mg/dL (2.3-7.6) H 04/23/18 14:13 Calcium 8.5 mg/dL (8.6-10.3) L 04/24/18 04:27 Phosphorus 2.1 mg/dL (2.7-4.5) L 04/23/18 21:36 Urine Clarity Cloudy (Clear) A 04/22/18 18:22 Urine Protein 30 mg/dL (Neg-Trace) H 04/22/18 18:22 Urine Blood Small (Negative) H 04/22/18 18:22 Urine Bilirubin Small (Negative) H 04/22/18 18:22 Ur Leukocyte Esterase Small (Negative) H 04/22/18 18:22 Urine Microscopic RBC 5-15 per hpf (0-3) H 04/22/18 18:22 Urine Microscopic WBC 15-30 per hpf (0-3) H 04/22/18 18:22 Ur Squamous Epith Cells Many per lpf (None-Few) H 04/22/18 18:22 Ur Culture Indicated? NO. (NO) A 04/22/18 18:22 Consult Discharge Plan - Plan Referrals: NONE,PCP [Primary Care Provider] - <Surjit Barksdale I - Last Filed: 04/24/18 16:23> Date of Encounter: 04/24/18 Assessment and Plan (1) Cerebral hypoperfusion Current Visit: Yes Status: Acute (2) Hemiparesis affecting left side as late effect of stroke Current Visit: Yes Status: Acute Pt was seen and examined, my medical decision was reviewed with the Resident Physician, I agree with the documented findings, disposition and treatment plas as described except to the extent set forth below. So far she is been doing well no new symptoms and finding somehow she has not received the MRI yet awaiting MRI for further recommendation for treatment is as per primary team Surjit Barksdale MD (3) Facial droop Current Visit: Yes Status: Acute (4) Status post craniotomy Current Visit: Yes Status: Acute Objective - Constitutional Vitals: Temp Pulse Resp BP Pulse Ox 98.4 F 104 15 134/77 95 04/24/18 15:00 04/24/18 15:00 04/24/18 15:00 04/24/18 15:00 04/24/18 15:00 Results - Laboratory Findings CBC and BMP: 04/24/18 04:27 04/24/18 04:27 Abnormal lab findings: Abnormal lab results MCV 82.3 fL (83.0-100.0) L 04/24/18 04:27 MCH 26.5 pg (28.0-33.3) L 04/24/18 04:27 RDW 16.0 % (11.5-14.5) H 04/24/18 04:27 MPV 9.0 fL (9.4-12.4) L 04/24/18 04:27 PT 12.4 Seconds (9.4-12.1) H 04/23/18 03:44 Chloride 112 mEq/L (98-107) H 04/24/18 04:27 Carbon Dioxide 19 mEq/L (23-29) L 04/24/18 04:27 Est GFR (Non-Af Amer) 53 (> 60) L 04/24/18 04:27 Glucose 135 mg/dL (70-105) H 04/24/18 04:27 POC Glucose 108 mg/dL (70-99) H 04/24/18 07:26 Uric Acid 10.3 mg/dL (2.3-7.6) H 04/23/18 14:13 Calcium 8.5 mg/dL (8.6-10.3) L 04/24/18 04:27 Phosphorus 2.1 mg/dL (2.7-4.5) L 04/23/18 21:36 Urine Clarity Cloudy (Clear) A 04/22/18 18:22 Urine Protein 30 mg/dL (Neg-Trace) H 04/22/18 18: Urine Blood Small (Negative) H 04/22/18 18: Urine Bilirubin Small (Negative) H 04/22/18 18: Ur Leukocyte Esterase Small (Negative) H 04/22/18 18: Urine Microscopic RBC 5-15 per hpf (0-3) H 04/22/18 18: Urine Microscopic WBC 15-30 per hpf (0-3) H 04/22/18 18: Ur Squamous Epith Cells Many per lpf (None-Few) H 04/22/18 18: Ur Culture Indicated? NO. (NO) A 04/22/18 18:
[2018-04-24] MEDS: Azelastine 0.1% Nasal Spray 30 ML BOTTLE NS SCH (18:50)
--- NOTE | 2018-04-24 20:30 | Internal Med Progress Note ---
Hospitalist Progress Note - Encounter Date of Encounter: 04/24/18 Time of Encounter: 11:00 - Subjective Interval History: Patient is a 57-year-old female with past medical history significant for prior CVAs in 2015 in 2017 who presented with left-sided facial weakness and dysarthria. Workup in progress; MRI, carotids and echocardiogram pending. Neurology following and awaiting results In addition patient also with acute renal failure - Exam Vitals: Temp Pulse Resp BP Pulse Ox 97.6 F 102 16 152/96 94 04/24/18 20:06 04/24/18 20:06 04/24/18 20:06 04/24/18 20:06 04/24/18 18:55 Exam: Gen.: Nonacute distress, alert and oriented 3 ENT: Mucosal membranes moist Respiratory: Lungs are clear to auscultation bilaterally without any wheezing rhonchi or rales Cardiovascular: Normal S1 and S2 regular rate rhythm no murmurs rubs or gallops Abdomen: Soft, nontender and nondistended with positive bowel sounds Extremities: No lower extremity edema Skin: Normal color - Assessment and Plan (1) Facial droop Current Visit: Yes Status: Acute Assessment and Plan: Patient brought in from rehab center due to concern for worsening left-sided f acial droop and slurred speech. Patient has mild left-sided facial droop at baseline. CT scan of the head including CTA of the head and neck were performed which did not reveal any acute changes. Patient was evaluated in the ER by Dr. Barksdale with neurology and does not suspect recurrent cva but likely secondary to her acute renal failure and medications including gabapentin and narcotics. Continue with neuro checks Echocardiogram, bilateral carotids and MRI pending Neurology following and appreciate any additional recommendations (2) Hypotension Current Visit: Yes Status: Acute Assessment and Plan: Resolved after fluid resuscitation; continue to monitor (3) Hypokalemia Current Visit: Yes Status: Acute Assessment and Plan: Resolved; continue to monitor (4) Hypomagnesemia Current Visit: Yes Status: Acute Assessment and Plan: Resolved; continue to monitor (5) Acute renal failure (ARF) Current Visit: Yes Status: Acute Assessment and Plan: Resolved; continue to monitor (6) HTN (hypertension), benign Current Visit: Yes Status: Acute Assessment and Plan: Will continue to hold home dose of lisinopril and amlodipine due to recently resolved hypotension (7) Hypothyroid Current Visit: Yes Status: Acute Assessment and Plan: Continue home dose of levothyroxine (8) Mood disorder Current Visit: Yes Status: Acute Assessment and Plan: Continue home medications (9) DVT prophylaxis Current Visit: Yes Status: Acute Assessment and Plan: Subcutaneous heparin - Time Spent with Patient Total time spent is greater than 50% in coordination of care (as documented) at patient's floor/unit and/or counseling patient: Internal Medicine: Result - Labs CBC & Chem 7: 04/24/18 04:27 04/24/18 04:27 Labs: Short CBC 04/24/18 Range/Units 04:27 WBC 7.6 (4.3-11.1) K/mcL Hgb 12.9 (11.5-15.4) g/dL Hct 40.0 (35.3-44.9) % Plt Count 218 (140-400) K/mcL Neutrophils # 5.6 (1.6-8.9) K/mcL BMP 04/23/18 04/24/18 21:36 04:27 Sodium 138 139 Potassium 3.7 3.5 Chloride 113 H 112 H Carbon Dioxide 15 L 19 L BUN 23 H 16 Creatinine 1.50 H 1.08 Glucose 128 H 135 H Calcium 8.5 L 8.5 L Liver Function 04/23/18 Range/Units 21:36 Total Bilirubin 0.4 (0.3-1.0) mg/dL AST 15 (13-39) Units/L ALT 17 (7-52) Units/L Alkaline Phosphatase 97 (34-104) Units/L Albumin 3.7 (3.5-5.7) g/dL - ABG Interpretation ABG results: PT/INR, D-dimer PT 12.4 Seconds (9.4-12.1) H 04/23/18 03:44 - Impressions Impressions Head CT 04/22/18 16:15 IMPRESSION: No acute intracranial abnormality. Sequela of remote right basal ganglia hemorrhage. Findings were discussed with Jose A Perdue at 4:38 pm on 04/22/2018. D/ / 04/22/2018 16:42:42 Ron Ramirez MD / enma Interpreting Provider: Ron Ramirez MD Consult Discharge Plan - Plan Referrals: NONE,PCP [Primary Care Provider] - (2) Hypotension Qualifiers: Hypotension type: hypotension due to hypovolemia Qualified Code(s): I95.89 - Other hypotension; E86.1 - Hypovolemia
[2018-04-25] MEDS: 0.9 % Sodium Chloride 1,000 ML IVC SCH (03:49)
--- NOTE | 2018-04-25 07:47 | Neurology Progress Note ---
Date of Encounter: 04/25/18 Assessment and Plan (1) Hypotension Current Visit: Yes Status: Acute Qualifiers: Hypotension type: hypotension due to hypovolemia Qualified Code(s): I95.89 - Other hypotension; E86.1 - Hypovolemia (2) Hypokalemia Current Visit: Yes Status: Acute (3) Facial droop Current Visit: Yes Status: Acute (4) Hypomagnesemia Current Visit: Yes Status: Acute (5) DVT prophylaxis Current Visit: Yes Status: Acute (6) Acute renal failure (ARF) Current Visit: Yes Status: Acute (7) Hypothyroid Current Visit: Yes Status: Acute (8) HTN (hypertension), benign Current Visit: Yes Status: Acute (9) Mood disorder Current Visit: Yes Status: Acute Subjective Principal diagnosis: CVA Interval history: no acute events overnight. Still awaiting MRI. Patient is confused this morning, saying she needs to get "tests" done and no one wants to get her a neurology appointment. She continues to have left hemiparesis. Objective - Constitutional Vitals: Temp Pulse Resp BP Pulse Ox 97.4 F L 87 16 141/93 98 04/25/18 06:19 04/25/18 07:42 04/25/18 06:19 04/25/18 07:42 04/25/18 07:42 - Neurological Exam Sensorimotor examination: Present: intact (No significant change in the neurological status continued to have this left hemiparesis) Results - Laboratory Findings CBC and BMP: 04/24/18 04:27 04/24/18 04:27 Abnormal lab findings: Abnormal lab results MCV 82.3 fL (83.0-100.0) L 04/24/18 04:27 MCH 26.5 pg (28.0-33.3) L 04/24/18 04:27 RDW 16.0 % (11.5-14.5) H 04/24/18 04:27 MPV 9.0 fL (9.4-12.4) L 04/24/18 04:27 PT 12.4 Seconds (9.4-12.1) H 04/23/18 03:44 Chloride 112 mEq/L (98-107) H 04/24/18 04:27 Carbon Dioxide 19 mEq/L (23-29) L 04/24/18 04:27 Est GFR (Non-Af Amer) 53 (> 60) L 04/24/18 04:27 Glucose 135 mg/dL (70-105) H 04/24/18 04:27 POC Glucose 108 mg/dL (70-99) H 04/24/18 07:26 Uric Acid 10.3 mg/dL (2.3-7.6) H 04/23/18 14:13 Calcium 8.5 mg/dL (8.6-10.3) L 04/24/18 04:27 Phosphorus 2.1 mg/dL (2.7-4.5) L 04/23/18 21:36 Urine Clarity Cloudy (Clear) A 04/22/18 18:22 Urine Protein 30 mg/dL (Neg-Trace) H 04/22/18 18:22 Urine Blood Small (Negative) H 04/22/18 18:22 Urine Bilirubin Small (Negative) H 04/22/18 18:22 Ur Leukocyte Esterase Small (Negative) H 04/22/18 18:22 Urine Microscopic RBC 5-15 per hpf (0-3) H 04/22/18 18:22 Urine Microscopic WBC 15-30 per hpf (0-3) H 04/22/18 18:22 Ur Squamous Epith Cells Many per lpf (None-Few) H 04/22/18 18:22 Ur Culture Indicated? NO. (NO) A 04/22/18 18:22 Consult Discharge Plan - Plan Referrals: NONE,PCP [Primary Care Provider] -
[2018-04-25] MEDS: *HR* Heparin 5,000 UNIT/ML VIAL SQ SCH ×2 (08:55→16:40)
[2018-04-25] MEDS: Aspirin 81 MG TAB.CHEW PO SCH (08:55)
[2018-04-25] MEDS: Potassium Citrate 10 MEQ TABLET.ER PO SCH ×3 (08:55→20:20)
[2018-04-25] MEDS: Azelastine 0.1% Nasal Spray 30 ML BOTTLE NS SCH (08:56)
--- NOTE | 2018-04-25 10:30 | Internal Med Progress Note ---
Hospitalist Progress Note - Encounter Date of Encounter: 04/25/18 Time of Encounter: 10:27 - Subjective Interval History: I've seen and evaluated the patient at bedside. Patient is alert to person, place and partially to the time, to the year and a month not day of the week. She denies slurred speech. Reports that she cannot move her left side following a stroke. Reports that she had knee replacement, denies other surgical intervention. Denies chest pain, nausea, vomiting or abdominal pain. - Exam Vitals: Temp Pulse Resp BP Pulse Ox 97.4 F L 87 16 141/93 98 04/25/18 06:19 04/25/18 07:42 04/25/18 06:19 04/25/18 07:42 04/25/18 07:42 Exam: Vitals: reviewed. General: Alert and oriented 3. In no acute distress. Skin: Normal color, no rash, no lesions. HEENT: EOM, pupils equal, round and reactive. Cardiovascular: RRR, Normal S1 & S2, no rubs, murmurs or gallops. Lungs: Clear to auscultation bilaterally, no wheezes or crackles. Abdomen: Obese, Soft, non-tender, no rigidity. Extremities: Left sided Hemiplegia. Neurological: Normal cognition. Rest of the physical exam is non contributory - Assessment and Plan (1) Hemiparesis affecting left side as late effect of stroke Current Visit: Yes Status: Chronic Assessment and Plan: Plan Unable to obtain MRI, unable to find a family member to fill the screening sheet Will perform a skeletal survey, to evaluate for metal in her body. and then proceed with MRI if negative If unable to obtain an MRI will discuss with neuro team about repeating Head CT. PT/OT neurology consulted recommendations appreciated. Continue aspirin 81 mg by mouth daily. (2) Hypotension Current Visit: Yes Status: Resolved Assessment and Plan: Most likely due to volume depletion in the setting of diarrhea and poor PO intake. (3) Hypokalemia Current Visit: Yes Status: Resolved Assessment and Plan: Continue by mouth potassium replacement. will discontinue by mouth replacement when potassium levels above 4. (4) Hypomagnesemia Current Visit: Yes Status: Resolved (5) Acute renal failure (ARF) Current Visit: Yes Status: Resolved Assessment and Plan: Most likely prerenal. Due to volume depletion. Avoid nephrotoxic medication (6) Hypothyroid Current Visit: Yes Status: Chronic Assessment and Plan: Continue levothyroxine 50 mcg/po daily (7) HTN (hypertension), benign Current Visit: Yes Status: Chronic Assessment and Plan: will start resuming patient home medications. Amlodipine 5mg/PO daily (8) Mood disorder Current Visit: Yes Status: Chronic Assessment and Plan: will resume home medication. On topiramate 50 mg by mouth, on fluoxetine 40 mg by mouth daily (9) Rheumatoid arthritis Current Visit: Yes Status: Chronic Assessment and Plan: Hold home medication. (10) Diarrhea Current Visit: Yes Status: Chronic Assessment and Plan: GI consulted recommended colonoscopy to rule out microscopic colitis. DVT Prophylaxis: On heparin subcutaneous. - Summary of Assessment and Plan Summary of Assessment and Plan: Patient to remain in the hospital pending MRI of the brain. Scheduled for a colonoscopy. - Time Spent with Patient Total time spent is greater than 50% in coordination of care (as documented) at patient's floor/unit and/or counseling patient: Greater than 35 minutes (38) Plan of Care Discussed with: patient (On the nurse.) Internal Medicine: Result - Labs CBC & Chem 7: 04/24/18 04:27 04/24/18 04:27 - ABG Interpretation ABG results: PT/INR, D-dimer PT 12.4 Seconds (9.4-12.1) H 04/23/18 03:44 - Impressions Impressions Head CT 04/22/18 16:15 IMPRESSION: No acute intracranial abnormality. Sequela of remote right basal ganglia hemorrhage. Findings were discussed with Jose A Perdue at 4:38 pm on 04/22/2018. D/ / 04/22/2018 16:42:42 Ron Ramirez MD / enma Interpreting Provider: Ron Ramirez MD Consult Discharge Plan - Plan Referrals: NONE,PCP [Primary Care Provider] - (2) Hypotension Qualifiers: Hypotension type: hypotension due to hypovolemia Qualified Code(s): I95.89 - Other hypotension; E86.1 - Hypovolemia (5) Acute renal failure (ARF) Qualifiers: Acute renal failure type: unspecified Qualified Code(s): N17.9 - Acute kidney failure, unspecified (6) Hypothyroid Qualifiers: Hypothyroidism type: unspecified Qualified Code(s): E03.9 - Hypothyroidism, unspecified (9) Rheumatoid arthritis Qualifiers: Rheumatoid factor presence: unspecified presence Laterality: unspecified laterality (10) Diarrhea Qualifiers: Diarrhea type: unspecified type Qualified Code(s): R19.7 - Diarrhea, unspecified
[2018-04-25] MEDS ORDERED: *HR* Dextrose 50 % in Water (Syg) 50 ML SYRINGE IVP PRN (10:39)
[2018-04-25] MEDS ORDERED: D5% in Water 1,000 ML IVC PRN (10:39)
[2018-04-25] MEDS ORDERED: Dextrose Gel 15 GM/37.5 ML TUBE PO PRN ×2 (10:39)
[2018-04-25] MEDS: D5% in 0.45% NACL 1,000 ML IVC SCH (13:31)
[2018-04-25] MEDS: Insulin LISPRO 300 UNITS/3 ML VIAL SQ SCH (13:50)
--- NOTE | 2018-04-25 19:11 | Electrocardiograph Report ---
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
[2018-04-25] MEDS: Topiramate 25 MG CAP.SPRINK PO SCH (20:20)
[2018-04-26] MEDS: *HR* Heparin 5,000 UNIT/ML VIAL SQ SCH ×3 (01:17→16:06)
[2018-04-26] MEDS: Insulin LISPRO 300 UNITS/3 ML VIAL SQ SCH ×5 (01:25→18:17)
[2018-04-26 04:21] LABS: Basophils % 0.4 %; Eosinophils # 0.7 K/mcL (0.0-0.6); Eosinophils % 8.7 %; Hemoglobin 13.5 g/dL (11.5-15.4); Immature Granulocytes % 0.2 % (0-4); Lymphocytes # 1.7 K/mcL (0.6-4.6); Lymphocytes % 20.3 %; Mean Corpuscular HGB Conc 33.8 g/dL (31.6-35.5); Mean Corpuscular Hemoglobin 27.3 pg (28.0-33.3); Mean Corpuscular Volume 80.8 fL (83.0-100.0); Mean Platelet Volume 8.7 fL (9.4-12.4); Monocytes # 0.6 K/mcL (0.0-1.3); Monocytes % 7.4 %; Neutrophils # 5.4 K/mcL (1.6-8.9); Platelet Count 255 K/mcL (140-400); Red Blood Count 4.95 M/mcL (3.82-4.97); Red Cell Distribution Width 15.9 % (11.5-14.5)
[2018-04-26 04:38] LABS: BUN/Creatinine Ratio 5 (6-26); Blood Urea Nitrogen 3 mg/dL (6-20); Calcium 8.8 mg/dL (8.6-10.3); Carbon Dioxide 23 mEq/L (23-29); Chloride 105 mEq/L (98-107); Glucose 150 mg/dL (70-105); Magnesium 1.7 mg/dL (1.6-2.6); Osmolality,Calculated 287 (280-300); Phosphorous 1.3 mg/dL (2.7-4.5); Potassium 3.1 mEq/L (3.5-5.1); Sodium 139 mEq/L (136-145); eGFR For Non-African Americans > 60 (> 60)
[2018-04-26] MEDS: D5% in 0.45% NACL 1,000 ML IVC SCH (06:48)
[2018-04-26] MEDS: Azelastine 0.1% Nasal Spray 30 ML BOTTLE NS SCH (08:35)
[2018-04-26] MEDS: Potassium Citrate 10 MEQ TABLET.ER PO SCH ×3 (08:35→20:46)
[2018-04-26] MEDS: Aspirin 81 MG TAB.CHEW PO SCH (08:36)
[2018-04-26] MEDS: FLUoxetine 20 MG CAPSULE PO SCH (08:36)
[2018-04-26] MEDS: Topiramate 25 MG CAP.SPRINK PO SCH ×2 (08:36→20:46)
[2018-04-26] MEDS: amLODIPine 5 MG TABLET PO SCH (08:36)
--- NOTE | 2018-04-26 09:06 | Discharge Summary ---
- NOTES TO OUTPATIENT PROVIDER Notes to Outpatient Provider: Follow-up with neurology within 1-2 weeks of hospital discharge. Orders not resulted at time of discharge: Pending orders 04/23/18 13:39 Creatinine,Urine [UCHEM] Routine Eosinophil,Urine [URIN] Routine Sodium, Urine [UCHEM] Routine 04/24/18 12:43 Calprotectin, Fecal Stat Pancreatic Elastase, Fecal Stat Date of Encounter: 04/26/18 Time of Encounter: 09:04 - Discharge Diagnosis (1) Hemiparesis affecting left side as late effect of stroke Priority: Primary Status: Chronic (2) Hypotension Priority: Secondary Status: Resolved Qualifiers: Hypotension type: hypotension due to hypovolemia Qualified Code(s): I95.89 - Other hypotension; E86.1 - Hypovolemia (3) Hypokalemia Priority: Secondary Status: Resolved (4) Hypomagnesemia Priority: Secondary Status: Resolved (5) Acute renal failure (ARF) Priority: Secondary Status: Resolved Qualifiers: Acute renal failure type: unspecified Qualified Code(s): N17.9 - Acute kidney failure, unspecified (6) Hypothyroid Priority: Secondary Status: Chronic Qualifiers: Hypothyroidism type: unspecified Qualified Code(s): E03.9 - Hypothyroidism, unspecified (7) HTN (hypertension), benign Priority: Secondary Status: Chronic (8) Mood disorder Priority: Secondary Status: Chronic (9) Rheumatoid arthritis Priority: Secondary Status: Chronic Qualifiers: Rheumatoid arthritis location: unspecified site Rheumatoid factor presence: unspecified presence Qualified Code(s): M06.9 - Rheumatoid arthritis, unspecified (10) Diarrhea Priority: Secondary Status: Chronic Qualifiers: Diarrhea type: unspecified type Qualified Code(s): R19.7 - Diarrhea, unspecified Hospital course: Ms. Calderón is a 57 year old female past medical history of CVA, fibromyalgia, hypertension, migraine, RA, thyroid disease. Patient was brought to the from a shelter after it was noticed that her left sided facial droop was worse then normal. Patient was also found to be hypotensive with the Blood pressure in the 80s, hypokalemic, with potassium level of 2.9. Patient resuscitated with IV fluids and electrolyte replaced. MRI of the brain done: IMPRESSION: 1. No acute intracranial abnormality. 2. Extensive right frontotemporal encephalomalacia with hemosiderin staining in keeping with sequela of prior hemorrhagic infarct. Due to patient reporting chronic diarrhea, GI was consulted, colonoscopy planned to r/o microscopic colitis. Colonoscopy report: - Time Spent with Patient Total time spent providing and/or coordinating discharge services: Greater than 30 minutes - Discharge Medications Home Medications: Acetaminophen [Non-Aspirin] 650 mg PO Q4-6H PRN 04/22/18 [History] Albuterol Neb [Proventil Neb] 2.5 mg IH Q4H PRN 04/22/18 [History] Amlodipine Besylate 10 mg PO DAILY 04/22/18 [History] Azelastine 0.1% Nasal [place] [Astelin] 1 spr NS DAILY 04/22/18 [History] Cyclobenzaprine HCl 5 mg PO BID 04/22/18 [History] Dextromethorphan HBr/Quinidine [Nuedexta 20-10 mg Capsule] 1 cap PO BID 04/22/18 [History] FLUoxetine HCl [Fluoxetine HCl] 40 mg PO DAILY 04/22/18 [History] Gabapentin [Neurontin] 800 mg PO TID 04/22/18 [History] Leflunomide [Arava] 20 mg PO DAILY 04/22/18 [History] Levothyroxine [Synthroid] 50 mcg PO QAM 04/22/18 [History] Lisinopril [Zestril] 10 mg PO DAILY 04/22/18 [History] Loratadine [Allergy Relief] 10 mg PO DAILY 04/22/18 [History] Melatonin [Melatin] 6 mg PO HS 04/22/18 [History] Meloxicam [Mobic] 15 mg PO DAILY 04/22/18 [History] Morphine Sulfate [Nadia] 1 cap PO BID 04/22/18 [History] Ondansetron HCl [Zofran] 4 mg PO Q4H PRN 04/22/18 [History] Topiramate [Topamax] 50 mg PO BID 04/22/18 [History] traZODone [TraZODone] 50 mg PO HS 04/22/18 [History] Allergies/Adverse Reactions: Allergy/AdvReac Type Severity Reaction Status Date / Time Sulfa (Sulfonamide AdvReac See Verified 05/12/17 07:56 Antibiotics) Comments Date of admission: 04/22/18 19:54 Primary care physician: PCP NONE Consults: 04/22/18 18:06 Consult to Neurology [CONS] Stat Consulting Provider: [facility] Reason for Consult: worsening left sided deficits. CT head noncon and CTA hd nk show no acute changes. BP systolic 70's, giving fluids. Time Notified: 18:07 Call Completed: Yes 04/23/18 07:36 Consult to Nephrology [CONS] Routine Consulting Provider: [facility]/BILL/AUGUSTIN/ROSALINDA Reason for Consult: acute renal failure Call Completed: No 04/24/18 08:34 Consult to Software Programmer [CONS] Routine Reason for SW Consult: Patient from [facility] 04/24/18 10:38 Consult to Gastroenterology [CONS] Routine Consulting Provider: Gastroenterology [facility] Reason for Consult: severe diarrhea with rectal tube Call Completed: Yes 04/25/18 10:46 Consult to Physical Therapy [CONS] Routine Comment: Evaluate, develop and implement POC Reason for Consult: Left-sided hemiplegia post-CVA Does patient have active BEDREST order?: No Is patient medically & hemodynamically stable?: Yes 04/25/18 10:47 Consult to Occupational Therapy [CONS] Routine Comment: Evaluate, develop and implement POC Reason for Consult: Left-sided hemiplegia post-CVA Does patient have active BEDREST order?: No Is patient medically & hemodynamically stable?: Yes - Constitutional Vitals: Temp Pulse Resp BP Pulse Ox 98.0 F 94 19 100/67 94 04/26/18 06:33 04/26/18 06:33 04/26/18 06:33 04/26/18 07:58 04/26/18 06:33 Exam: Vitals: reviewed. General: Alert and oriented to person, and place, Not time. In no acute distress. Skin: Normal color, no rash, no lesions. HEENT: EOM, pupils equal, round and reactive. Cardiovascular: RRR, Normal S1 & S2, no rubs, murmurs or gallops. Lungs: Clear to auscultation bilaterally, no wheezes or crackles. Abdomen: Obese, Soft, non-tender, no rigidity. NABS in all 4 quadrants. Extremities: Left sided Hemiplegia. Neurological: Normal cognition. Rest of the physical exam is non contributory - Patient Status Disposition: Transfer LTC Condition: Good Functional capacity at discharge: wheelchair bound Overall status at discharge: patient is back to baseline - Discharge Instructions Follow Up With: NONE,PCP [Primary Care Provider] - - Diet and Activity Activity: as per physical therapy Diet: low salt diet
--- NOTE | 2018-04-26 09:48 | Neurology Progress Note ---
<Moris Mackenzie - Last Filed: 04/26/18 09:52> Date of Encounter: 04/26/18 Time of Encounter: 09:52 Assessment and Plan (1) Hemiparesis affecting left side as late effect of stroke Current Visit: Yes Status: Chronic MRI shows right frontotemporal encephalomalacia with hemosiderin staining. This is from prior hemorrhagic infarct. There is no acute intracranial abnormalities. Continue aspirin. Patient is okay to be discharged from neurology perspective. Subjective Principal diagnosis: CVA Interval history: No acute events overnight. Patient continues to have left-sided weakness. She continues to be confused. Objective - Constitutional Vitals: Temp Pulse Resp BP Pulse Ox 98.0 F 94 19 100/67 94 04/26/18 06:33 04/26/18 06:33 04/26/18 06:33 04/26/18 07:58 04/26/18 06:33 - Neurological Exam Sensorimotor examination: Present: intact (No significant change in the neurological status continued to have this left hemiparesis) Results - Laboratory Findings CBC and BMP: 04/26/18 03:35 04/26/18 03:35 Abnormal lab findings: Abnormal lab results MCV 80.8 fL (83.0-100.0) L 04/26/18 03:35 MCH 27.3 pg (28.0-33.3) L 04/26/18 03:35 RDW 15.9 % (11.5-14.5) H 04/26/18 03:35 MPV 8.7 fL (9.4-12.4) L 04/26/18 03:35 Eosinophils # 0.7 K/mcL (0.0-0.6) H 04/26/18 03:35 PT 12.4 Seconds (9.4-12.1) H 04/23/18 03:44 Potassium 3.1 mEq/L (3.5-5.1) L 04/26/18 03:35 BUN 3 mg/dL (6-20) L 04/26/18 03:35 Creatinine 0.58 mg/dL (0.60-1.20) L 04/26/18 03:35 BUN/Creatinine Ratio 5 (6-26) L 04/26/18 03:35 Glucose 150 mg/dL (70-105) H 04/26/18 03:35 POC Glucose 143 mg/dL (70-99) H 04/26/18 00:23 Uric Acid 10.3 mg/dL (2.3-7.6) H 04/23/18 14:13 Phosphorus 1.3 mg/dL (2.7-4.5) L 04/26/18 03:35 Urine Clarity Cloudy (Clear) A 04/22/18 18:22 Urine Protein 30 mg/dL (Neg-Trace) H 04/22/18 18:22 Urine Blood Small (Negative) H 04/22/18 18:22 Urine Bilirubin Small (Negative) H 04/22/18 18:22 Ur Leukocyte Esterase Small (Negative) H 04/22/18 18:22 Urine Microscopic RBC 5-15 per hpf (0-3) H 04/22/18 18:22 Urine Microscopic WBC 15-30 per hpf (0-3) H 04/22/18 18:22 Ur Squamous Epith Cells Many per lpf (None-Few) H 04/22/18 18:22 Ur Culture Indicated? NO. (NO) A 04/22/18 18:22 Consult Discharge Plan - Plan Referrals: Surjit Barksdale MD [Partnered Physician] - 05/03/18 2:15 pm NONE,PCP [Primary Care Provider] - <Surjit Barksdale I - Last Filed: 04/26/18 14:15> Date of Encounter: 04/26/18 Assessment and Plan (1) Cerebral hypoperfusion Current Visit: Yes Status: Acute (2) Hemiparesis affecting left side as late effect of stroke Current Visit: Yes Status: Chronic Pt was seen and examined, my medical decision was reviewed with the Resident Physician, I agree with the documented findings, disposition and treatment plas as described except to the extent set forth below Surjit Barksdale MD (3) Facial droop Current Visit: Yes Status: Acute (4) Status post craniotomy Current Visit: Yes Status: Acute Objective - Constitutional Vitals: Temp Pulse Resp BP Pulse Ox 98.1 F 91 18 151/93 98 04/26/18 12:17 04/26/18 12:17 04/26/18 12:17 04/26/18 12:17 04/26/18 12:17 Results - Laboratory Findings CBC and BMP: 04/26/18 03:35 04/26/18 03:35 Abnormal lab findings: Abnormal lab results MCV 80.8 fL (83.0-100.0) L 04/26/18 03:35 MCH 27.3 pg (28.0-33.3) L 04/26/18 03:35 RDW 15.9 % (11.5-14.5) H 04/26/18 03:35 MPV 8.7 fL (9.4-12.4) L 04/26/18 03:35 Eosinophils # 0.7 K/mcL (0.0-0.6) H 04/26/18 03:35 PT 12.4 Seconds (9.4-12.1) H 04/23/18 03:44 Potassium 3.1 mEq/L (3.5-5.1) L 04/26/18 03:35 BUN 3 mg/dL (6-20) L 04/26/18 03:35 Creatinine 0.58 mg/dL (0.60-1.20) L 04/26/18 03:35 BUN/Creatinine Ratio 5 (6-26) L 04/26/18 03:35 Glucose 150 mg/dL (70-105) H 04/26/18 03:35 POC Glucose 143 mg/dL (70-99) H 04/26/18 00:23 Uric Acid 10.3 mg/dL (2.3-7.6) H 04/23/18 14:13 Phosphorus 1.3 mg/dL (2.7-4.5) L 04/26/18 03:35 Urine Clarity Cloudy (Clear) A 04/22/18 18:22 Urine Protein 30 mg/dL (Neg-Trace) H 04/22/18 18:22 Urine Blood Small (Negative) H 04/22/18 18:22 Urine Bilirubin Small (Negative) H 04/22/18 18:22 Ur Leukocyte Esterase Small (Negative) H 04/22/18 18:22 Urine Microscopic RBC 5-15 per hpf (0-3) H 04/22/18 18:22 Urine Microscopic WBC 15-30 per hpf (0-3) H 04/22/18 18:22 Ur Squamous Epith Cells Many per lpf (None-Few) H 04/22/18 18:22 Ur Culture Indicated? NO. (NO) A 04/22/18 18:22
--- NOTE | 2018-04-26 10:02 | Gastroenterology Progress Note ---
Date of Encounter: 04/26/18 Time of Encounter: 10:00 - Assessment and plan (1) Diarrhea Current Visit: Yes Status: Chronic Assessment and plan: Pt reports a month long history of diarrhea. GI panel was negative, fecal calpro pancreatic elastase pending. Discussed with patient, we will plan for colonoscopy tomorrow. Clear liquid diet today, nothing by mouth midnight. Dulcolax and GoLYTELY this evening for bowel prep. Tap water enemas in the morning if not clear. Qualifiers: Diarrhea type: unspecified type Qualified Code(s): R19.7 - Diarrhea, unspecified - Time Spent With Patient Total time spent is greater than 50% in coordination of care (as documented) at patient's floor/unit and/or counseling patient: - Subjective Interval history: Patient seen and examined at bedside. She reports that she continues to have loose stools and mild periumbilical abdominal pain. Denies hematemesis, he matochezia, melena. She is tolerating clear liquid diet well. - Constitutional Vitals: Temp Pulse Resp BP Pulse Ox 98.0 F 94 19 100/67 94 04/26/18 06:33 04/26/18 06:33 04/26/18 06:33 04/26/18 07:58 04/26/18 06:33 General appearance: Present: pleasant, answers questions appropriately - Cardiovascular Cardiovascular exam: Present: RRR. Absent: gallop, rubs, systolic murmur - GI/Abdominal GI/Abdominal exam: Present: normal bowel sounds, soft, tenderness (mild, periumbilical), no peritoneal signs. Absent: distended Results - Labs CBC & Chem 7: 04/26/18 03:35 04/26/18 03:35 Labs: Last Result Calcium 8.8 mg/dL (8.6-10.3) 04/26/18 03:35 Troponin I < 0.03 ng/mL (< 0.04) 04/22/18 16:15 Entire Visit Hgb 13.5 g/dL (11.5-15.4) 04/26/18 03:35 Hct 40.0 % (35.3-44.9) 04/26/18 03:35 PT 12.4 Seconds (9.4-12.1) H 04/23/18 03:44 Total Bilirubin 0.4 mg/dL (0.3-1.0) 04/23/18 21:36 AST 15 Units/L (13-39) 04/23/18 21:36 ALT 17 Units/L (7-52) 04/23/18 21:36 - ABG ABG results: PT/INR, D-dimer PT 12.4 Seconds (9.4-12.1) H 04/23/18 03:44 - Impressions Impressions Brain MRI 04/25/18 21:01 IMPRESSION: 1. No acute intracranial abnormality. 2. Extensive right frontotemporal encephalomalacia with hemosiderin staining in keeping with sequela of prior hemorrhagic infarct. D/ / Sam Fregoso / Sam Fregoso Interpreting Provider: Sam Fregoso Consult Discharge Plan - Plan Referrals: NONE,PCP [Primary Care Provider] -
[2018-04-26] MEDS ORDERED: SODIUM CHLORIDE/NAHCO3/KCL/PEG 4,000 ML SOLN.RECON PO ONE (17:00)
[2018-04-26 19:02] LABS: BUN/Creatinine Ratio 5 (6-26); Blood Urea Nitrogen 3 mg/dL (6-20); Carbon Dioxide 22 mEq/L (23-29); Chloride 105 mEq/L (98-107); Glucose 122 mg/dL (70-105); Osmolality,Calculated 286 (280-300); Potassium 3.3 mEq/L (3.5-5.1); Sodium 139 mEq/L (136-145); eGFR For Non-African Americans > 60 (> 60)
[2018-04-27] MEDS: Insulin LISPRO 300 UNITS/3 ML VIAL SQ SCH ×3 (00:59→14:05)
[2018-04-27] MEDS: *HR* Heparin 5,000 UNIT/ML VIAL SQ SCH ×3 (00:59→16:39)
[2018-04-27 08:37] LABS: BUN/Creatinine Ratio 5 (6-26); Blood Urea Nitrogen 3 mg/dL (6-20); Calcium 9.1 mg/dL (8.6-10.3); Carbon Dioxide 23 mEq/L (23-29); Chloride 105 mEq/L (98-107); Glucose 140 mg/dL (70-105); Magnesium 1.6 mg/dL (1.6-2.6); Osmolality,Calculated 283 (280-300); Phosphorous 2.1 mg/dL (2.7-4.5); Potassium 3.2 mEq/L (3.5-5.1); Sodium 137 mEq/L (136-145); eGFR For Non-African Americans > 60 (> 60)
[2018-04-27] MEDS: FLUoxetine 20 MG CAPSULE PO SCH (10:48)
[2018-04-27] MEDS: D5% in 0.45% NACL 1,000 ML IVC SCH (10:49)
--- NOTE | 2018-04-27 11:22 | Event Note ---
Date of Encounter: 04/27/18 Time of Encounter: 11:17 I have seen and evaluated the patient at bedside. reports doing well but still reports watery diarrhea, and having about 1-2 BM at day. denies chest pain, abdominal pain, nausea or vomiting. but report right arm pain at the IV site. Physical exam: Vitals: reviewed. General: Awake, AOX4. In no acute distress. Skin: dry oral mucosa, Normal color, no rash, no lesions. Cardiovascular: RRR, Normal S1 & S2, no rubs, murmurs or gallops. Lungs: Clear to auscultation bilaterally, no wheezes or crackles. Abdomen: Obese, Soft, non-tender, no rigidity. NABS in all 4 quadrants. Extremities: Left sided Hemiplegia. No edema in the lower extr b/l Neurological: Normal cognition. Psych: Patient's affect is normal Rest of the physical exam is non contributory Assessment and Plan 1. Chronic diarrhea 2. Hemiparesis affecting the left side of the body 3. Hypertension 4. Mood disorder 5. VTE prophylaxis 6. Hx of CVA 7. Hypokalemia Plan - electrolyte has been replaced. - scheduled for colonoscopy - Discharged pending colonoscopy - discharge summary dictated yesterday.
[2018-04-27] MEDS ORDERED: *HR* Midazolam HCl 5 MG/5 ML VIAL IVP ONE ×2 (15:06→15:13)
[2018-04-27] MEDS ORDERED: Simethicone 40 MG/0.6 ML MLS IR ONE (15:06)
[2018-04-27] MEDS ORDERED: *HR* FentaNYL (PF) 100 MCG/2 ML VIAL IVP ONE ×2 (15:06→15:15)
[2018-04-27 15:44] VITALS: BP 152/79
[2018-04-27] MEDS: Aspirin 81 MG TAB.CHEW PO SCH (16:36)
[2018-04-27] MEDS: Potassium Citrate 10 MEQ TABLET.ER PO SCH ×2 (16:37→16:39)
[2018-04-27] MEDS: Topiramate 25 MG CAP.SPRINK PO SCH (16:37)
[2018-04-27] MEDS: amLODIPine 5 MG TABLET PO SCH (16:37)
[2018-04-27] MEDS: Azelastine 0.1% Nasal Spray 30 ML BOTTLE NS SCH (16:37)
--- NOTE | 2018-04-27 17:17 | Physician Discharge Referral ---
[facility] Referral Info [facility] - Diagnosis (1) Hemiparesis affecting left side as late effect of stroke Priority: Primary Status: Chronic (2) Hypotension Priority: Secondary Status: Resolved (3) Hypokalemia Priority: Secondary Status: Resolved (4) Hypomagnesemia Priority: Secondary Status: Resolved (5) Acute renal failure (ARF) Priority: Secondary Status: Resolved (6) Hypothyroid Priority: Secondary Status: Chronic (7) HTN (hypertension), benign Priority: Secondary Status: Chronic (8) Mood disorder Priority: Secondary Status: Chronic (9) Rheumatoid arthritis Priority: Secondary Status: Chronic (10) Diarrhea Priority: Secondary Status: Chronic Prognosis: Fair Aware of Diagnosis: Patient Aware of Prognosis: Patient - Transfer Medications Home Medications: Acetaminophen [Non-Aspirin] 650 mg PO Q4-6H PRN 04/22/18 [History] Albuterol Neb [Proventil Neb] 2.5 mg IH Q4H PRN 04/22/18 [History] Amlodipine Besylate 10 mg PO DAILY 04/22/18 [History] Azelastine 0.1% Nasal [place] [Astelin] 1 spr NS DAILY 04/22/18 [History] Cyclobenzaprine HCl 5 mg PO BID 04/22/18 [History] Dextromethorphan HBr/Quinidine [Nuedexta 20-10 mg Capsule] 1 cap PO BID 04/22/18 [History] FLUoxetine HCl [Fluoxetine HCl] 40 mg PO DAILY 04/22/18 [History] Gabapentin [Neurontin] 800 mg PO TID 04/22/18 [History] Leflunomide [Arava] 20 mg PO DAILY 04/22/18 [History] Levothyroxine [Synthroid] 50 mcg PO QAM 04/22/18 [History] Lisinopril [Zestril] 10 mg PO DAILY 04/22/18 [History] Loratadine [Allergy Relief] 10 mg PO DAILY 04/22/18 [History] Melatonin [Melatin] 6 mg PO HS 04/22/18 [History] Meloxicam [Mobic] 15 mg PO DAILY 04/22/18 [History] Morphine Sulfate [Nadia] 1 cap PO BID 04/22/18 [History] Ondansetron HCl [Zofran] 4 mg PO Q4H PRN 04/22/18 [History] Topiramate [Topamax] 50 mg PO BID 04/22/18 [History] traZODone [TraZODone] 50 mg PO HS 04/22/18 [History] Allergies/Adverse Reactions: Allergy/AdvReac Type Severity Reaction Status Date / Time Sulfa (Sulfonamide AdvReac See Verified 05/12/17 07:56 Antibiotics) Comments - Respiratory Orders None Smoking Cessation: Smoking cessation has been advised. For more information, call the [place] Tobacco Quit Line at 5-918-IEYT-NOW. - Advance Directives Code Status: Full Code - Mobility Orders Chair - Rehabiliation Orders Rehab Potential: Fair Rehab Orders: Evaluation for Physical Therapy, Evaluation for Occupational Therapy - Diet Orders Regular CERTIFICATION: I certify that the transfer of the above named patient to an Extended Care Facility is necessary for the continuing treatment of the diagnosis listed. The above information is true and accurate reflection of patient's current cond ition. Confidential - Redisclosure prohibited without a patient's written consent.
== END 2018-04-27 19:51 | DRG 683 ==
LOC: 2NENU 16:08 → EMEROOARM 16:08 → 2NENU 18:55 → SUATTDRO 19:54
PROVIDERS: ADMIT Internal Medicine; ATTEND Internal Medicine
PROC: ENDOCBX (2018-04-27 17:15)

== ENCOUNTER 2019-07-21 02:14 | Inpatient (IN) ==
[2019-07-21] MEDS ORDERED: cefTRIAXone 2,000 MG in 0.9 % Sodium Chloride Mini Bag 100 ML IVPB ONE (02:47)
[2019-07-21 02:51] LABS: Hemoglobin 15.6 g/dL (11.5-15.4); Mean Corpuscular HGB Conc 32.5 g/dL (31.6-35.5); Mean Corpuscular Hemoglobin 28.1 pg (28.0-33.3); Mean Corpuscular Volume 86.5 fL (83.0-100.0); Mean Platelet Volume 9.1 fL (9.4-12.4); Platelet Count 179 K/mcL (140-400); Red Blood Count 5.55 M/mcL (3.82-4.97); Red Cell Distribution Width 15.7 % (11.5-14.5); White Blood Count 8.2 K/mcL (4.3-11.1)
[2019-07-21 02:54] LABS: INR 1.1; Prothrombin Time 12.7 Seconds (9.4-12.1)
[2019-07-21 03:14] LABS: Bilirubin,Urine Negative (Negative); Blood,Urine Large (Negative); Clarity,Urine Cloudy (Clear); Color,Urine Yellow (Yellow); Glucose,Urine (UA) Normal (Normal); Ketones,Urine Negative (Negative); Leukocyte Esterase,Urine Large (Negative); Nitrite,Urine Negative (Negative); Protein,Urine 100 mg/dL (Neg-Trace); Specific Gravity,Urine 1.024 (1.010-1.025); Urobilinogen,Urine Normal (Normal)
[2019-07-21 03:14] LABS: Albumin 3.7 g/dL (3.5-5.7); Albumin/Globulin Ratio 1.3 (1.1-2.2); Bilirubin,Direct 0.3 mg/dL (0.0-0.2); Bilirubin,Indirect 0.4 mg/dL (0.0-1.0); Bilirubin,Total 0.7 mg/dL (0.3-1.0); Calcium 9.7 mg/dL (8.6-10.3); Globulin 2.9 g/dL (2.4-3.5); Magnesium 1.6 mg/dL (1.6-2.6); Phosphorous 1.6 mg/dL (2.7-4.5); Potassium 3.4 mEq/L (3.5-5.1); Total Protein 6.6 g/dL (6.4-8.9); Troponin I 0.03 ng/mL (< 0.04)
[2019-07-21 03:16] LABS: Bacteria,Urine Many per hpf (None-Few); Hyaline Casts,Urine None Seen per lpf (None-Few); RBC,Urine TNTC per hpf (0-3); Squamous Epithelial Cell,Urine Many per lpf (None-Few); WBC,Urine TNTC per hpf (0-3)
[2019-07-21 03:35] LABS: Eosinophils # 0.3 K/mcL (0.0-0.6); Lymphocytes # 0.5 K/mcL (0.6-4.6); Monocytes # 0.2 K/mcL (0.0-1.3); Neutrophils # 7.2 K/mcL (1.6-8.9)
[2019-07-21 03:36] LABS: Platelet Estimate Normal (Normal)
[2019-07-21] MEDS: 0.9 % Sodium Chloride 1,000 ML IVC ONE ×3 (03:47→05:17)
[2019-07-21] MEDS: 0.9 % Sodium Chloride 1,000 ML IVC SCH ×2 (04:20→05:00)
[2019-07-21] MEDS ORDERED: Naloxone 0.4 MG/ML INJ IVP PRN ×2 (04:56→14:22)
[2019-07-21] MEDS ORDERED: *HR* Metoprolol 5 MG/5 ML VIAL IVP PRN (05:00)
[2019-07-21] MEDS ORDERED: Ringers Solution, Lactated 1,000 ML IVC SCH (05:00)
[2019-07-21] MEDS ORDERED: *HR* Heparin 5,000 UNIT/ML VIAL SQ SCH (06:00)
[2019-07-21] MEDS ORDERED: 0.9 % Sodium Chloride 1,000 ML IVC ONE (06:14)
[2019-07-21] MEDS ORDERED: Potassium Phosphate 44 MEQ in 0.9 % Sodium Chloride 250 ML IVPB ONE (07:10)
[2019-07-21] MEDS ORDERED: *HR* Dextrose 50 % in Water (Syg) 50 ML SYRINGE IVP PRN ×2 (07:39→14:22)
[2019-07-21] MEDS ORDERED: D5% in Water 1,000 ML IVC PRN ×2 (07:39→14:22)
[2019-07-21] MEDS ORDERED: Dextrose Gel 15 GM/37.5 ML TUBE PO PRN ×4 (07:39→14:22)
[2019-07-21 08:29] LABS: Calcium 8.4 mg/dL (8.6-10.3); Potassium 3.4 mEq/L (3.5-5.1)
[2019-07-21] MEDS ORDERED: Insulin LISPRO 300 UNITS/3 ML VIAL SQ SCH (11:30)
[2019-07-21] MEDS: Gabapentin 100 MG CAPSULE PO SCH ×2 (14:39→20:07)
[2019-07-21] MEDS: Insulin LISPRO 300 UNITS/3 ML VIAL SQ SCH (17:00)
[2019-07-21] MEDS: *HR* Heparin 5,000 UNIT/ML VIAL SQ SCH (17:02)
[2019-07-21 17:21] LABS: Acinetobacter baumannii by PCR Not Detected (Not Detect); Enterobacter cloacae Cmplx PCR Not Detected (Not Detect); Enterococcus by PCR Not Detected (Not Detect); Escherichia coli by PCR Not Detected (Not Detect); Klebsiella oxytoca by PCR Not Detected (Not Detect); Klebsiella pneumoniae by PCR Not Detected (Not Detect); Staphylococcus aureus by PCR Not Detected (Not Detect); Staphylococcus by PCR Not Detected (Not Detect); Streptococcus agalactiae(B)PCR Not Detected (Not Detect); Streptococcus by PCR Not Detected (Not Detect); Streptococcus pneumoniae PCR Not Detected (Not Detect); Streptococcus pyogenes (A) PCR Not Detected (Not Detect); blaKPC Carbapenem-Resist Gene Not Detected (Not Detect); mecA Methicillin-Resist Gene Not Detected (Not Detect); vanA/B Vancomycin-Resist Genes Not Detected (Not Detect)
[2019-07-21 17:22] LABS: Candida albicans by PCR Not Detected (Not Detect); Candida glabrata by PCR Not Detected (Not Detect); Candida krusei by PCR Not Detected (Not Detect); Candida parapsilosis by PCR Not Detected (Not Detect); Candida tropicalis by PCR Not Detected (Not Detect); Enterobacteriaceae by PCR DETECTED (Not Detect); Pseudomonas aeruginosa by PCR Not Detected (Not Detect); Serratia marcescens by PCR Not Detected (Not Detect)
[2019-07-21] MEDS: Melatonin 3 MG TABLET PO SCH (20:07)
[2019-07-21] MEDS: traZODone 50 MG TABLET PO SCH (20:07)
[2019-07-22] MEDS: *HR* Heparin 5,000 UNIT/ML VIAL SQ SCH ×2 (05:36→17:56)
[2019-07-22] MEDS ORDERED: *HR* OxyCODONE Immed Rel 5 MG TABLET PO PRN (05:45)
[2019-07-22] MEDS ORDERED: Acetaminophen 325 MG TABLET PO ONE (05:45)
[2019-07-22 06:15] LABS: Basophils % 0.3 %; Eosinophils # 0.4 K/mcL (0.0-0.6); Eosinophils % 2.8 %; Immature Granulocytes % 0.7 % (0-4); Lymphocytes # 0.6 K/mcL (0.6-4.6); Lymphocytes % 4.2 %; Mean Corpuscular HGB Conc 32.1 g/dL (31.6-35.5); Mean Corpuscular Hemoglobin 27.8 pg (28.0-33.3); Mean Corpuscular Volume 86.5 fL (83.0-100.0); Mean Platelet Volume 9.4 fL (9.4-12.4); Monocytes # 0.7 K/mcL (0.0-1.3); Monocytes % 5.1 %; Platelet Count 115 K/mcL (140-400); Red Blood Count 4.97 M/mcL (3.82-4.97); Red Cell Distribution Width 16.1 % (11.5-14.5); Segmented Neutrophils % 86.9 %
[2019-07-22 06:16] LABS: Hemoglobin 13.8 g/dL (11.5-15.4); White Blood Count 13.8 K/mcL (4.3-11.1)
[2019-07-22 06:35] LABS: BUN/Creatinine Ratio 16 (6-26); Blood Urea Nitrogen 17 mg/dL (6-20); Calcium 8.5 mg/dL (8.6-10.3); Carbon Dioxide 18 mEq/L (23-29); Chloride 111 mEq/L (98-107); Glucose 180 mg/dL (70-105); Osmolality,Calculated 294 (280-300); Potassium 3.4 mEq/L (3.5-5.1); Sodium 139 mEq/L (136-145); eGFR For African Americans > 60 (> 60); eGFR For Non-African Americans 55 (> 60)
[2019-07-22] MEDS: Insulin LISPRO 300 UNITS/3 ML VIAL SQ SCH ×3 (08:48→16:55)
[2019-07-22] MEDS: Gabapentin 100 MG CAPSULE PO SCH ×3 (08:54→20:27)
[2019-07-22] MEDS: cefTRIAXone 2,000 MG in Water for inj. (sterile) 20 ML IVP SCH (08:55)
[2019-07-22] MEDS ORDERED: cefTRIAXone 1,000 MG in Water for inj. (sterile) 10 ML IVP SCH (09:00)
[2019-07-22] MEDS ORDERED: [UNRECOGNIZED DRUG - OTHER] PO PRN (12:40)
[2019-07-22] MEDS ORDERED: COUGH PO PRN (12:40)
[2019-07-22] MEDS: Acetaminophen/Butalbital/CaffeineTABLET PO PRN (13:12)
[2019-07-22] MEDS ORDERED: [UNRECOGNIZED DRUG - OTHER] PO SCH (20:00)
[2019-07-22] MEDS ORDERED: QUINIDINE PO SCH (20:00)
[2019-07-22] MEDS ORDERED: DEXTROMETHORPHAN HBR PO SCH (20:00)
[2019-07-22] MEDS: Melatonin 3 MG TABLET PO SCH (20:28)
[2019-07-22] MEDS: traZODone 50 MG TABLET PO SCH (20:28)
[2019-07-22] MEDS: Topiramate 25 MG TABLET PO SCH (20:33)
[2019-07-23] MEDS: *HR* Heparin 5,000 UNIT/ML VIAL SQ SCH ×3 (05:03→17:44)
[2019-07-23] MEDS: Insulin LISPRO 300 UNITS/3 ML VIAL SQ SCH ×3 (08:30→16:11)
[2019-07-23] MEDS: cefTRIAXone 2,000 MG in Water for inj. (sterile) 20 ML IVP SCH (08:49)
[2019-07-23] MEDS: CLEAR EYES NATURAL TEARS 15 ML BOTTLE BOTH EYES SCH (08:49)
[2019-07-23] MEDS: Gabapentin 100 MG CAPSULE PO SCH ×3 (08:49→21:09)
[2019-07-23] MEDS: Topiramate 25 MG TABLET PO SCH ×2 (08:52→21:12)
[2019-07-23 09:41] LABS: Estimated Average Glucose 169 mg/dl
[2019-07-23] MEDS: Acetaminophen/Butalbital/CaffeineTABLET PO PRN (14:13)
[2019-07-23] MEDS ORDERED: Ibuprofen 600 MG TABLET PO PRN (16:12)
[2019-07-23] MEDS: traZODone 50 MG TABLET PO SCH (21:10)
[2019-07-23] MEDS: Melatonin 3 MG TABLET PO SCH (21:24)
[2019-07-24 02:26] LABS: Basophils # 0.1 K/mcL (0.0-0.2); Basophils % 0.5 %; Eosinophils # 0.4 K/mcL (0.0-0.6); Eosinophils % 4.2 %; Hematocrit 43.5 % (35.3-44.9); Hemoglobin 13.9 g/dL (11.5-15.4); Immature Granulocytes % 0.6 % (0-4); Lymphocytes # 1.5 K/mcL (0.6-4.6); Lymphocytes % 16.4 %; Mean Corpuscular Volume 87.5 fL (83.0-100.0); Mean Platelet Volume 9.5 fL (9.4-12.4); Monocytes # 1.1 K/mcL (0.0-1.3); Monocytes % 11.4 %; Neutrophils # 6.2 K/mcL (1.6-8.9); Platelet Count 119 K/mcL (140-400); Red Blood Count 4.97 M/mcL (3.82-4.97); Red Cell Distribution Width 15.6 % (11.5-14.5); Segmented Neutrophils % 66.9 %; White Blood Count 9.3 K/mcL (4.3-11.1)
[2019-07-24 02:48] LABS: BUN/Creatinine Ratio 17 (6-26); Blood Urea Nitrogen 14 mg/dL (6-20); Calcium 9.5 mg/dL (8.6-10.3); Carbon Dioxide 23 mEq/L (23-29); Chloride 108 mEq/L (98-107); Glucose 135 mg/dL (70-105); Osmolality,Calculated 291 (280-300); Potassium 2.9 mEq/L (3.5-5.1); Sodium 139 mEq/L (136-145); eGFR For African Americans > 60 (> 60); eGFR For Non-African Americans > 60 (> 60)
[2019-07-24] MEDS: *HR* Heparin 5,000 UNIT/ML VIAL SQ SCH ×2 (05:55→16:21)
[2019-07-24] MEDS: Insulin LISPRO 300 UNITS/3 ML VIAL SQ SCH ×3 (07:31→16:21)
[2019-07-24] MEDS ORDERED: Potassium Chloride Elixir 20 MEQ/15 ML UDC PO SCH (09:00)
[2019-07-24] MEDS: cefTRIAXone 2,000 MG in Water for inj. (sterile) 20 ML IVP SCH (09:03)
[2019-07-24] MEDS: Gabapentin 100 MG CAPSULE PO SCH ×2 (09:04→14:42)
[2019-07-24] MEDS: CLEAR EYES NATURAL TEARS 15 ML BOTTLE BOTH EYES SCH (09:05)
[2019-07-24] MEDS: Topiramate 25 MG TABLET PO SCH (09:31)
[2019-07-24 16:19] VITALS: BP 113/78
== END 2019-07-24 18:45 | DRG 871 ==
LOC: 2ANU 02:14 → EMEROOARM 02:14 → ICNU 06:23 → 3BNU 15:46
PROVIDERS: ADMIT Family Medicine; ATTEND Family Medicine